=== PATIENT | female | born 1945 | race Caucasian/White ===

== ENCOUNTER 2020-03-25 15:48 | Inpatient (IN) | payer MEDICARE, MEDICAID ==
[~2020-03-25] VITALS: Ht 157.5 cm; Wt 81.5 kg
[2020-03-25 17:30] VITALS: BP 132/68
[2020-03-25] MEDS ORDERED: METO1TAB7 PO (18:11)
[2020-03-25] MEDS ORDERED: LOSA50TA88 PO (18:11)
[2020-03-25] MEDS ORDERED: MONT10TA4 PO (18:11)
[2020-03-25] MEDS ORDERED: IPRA0.00 INH (18:11)
[2020-03-25] MEDS ORDERED: SIMV20TA22 PO (18:11)
[2020-03-25] MEDS ORDERED: ZETI10TA16 PO (18:11)
[2020-03-25] MEDS ORDERED: INSUDET SC (18:11)
[2020-03-25] MEDS ORDERED: ASPI81TA85 PO (18:11)
[2020-03-25] MEDS ORDERED: SERT-138 PO (18:11)
[2020-03-25] MEDS ORDERED: INSUHUMDS SC (18:11)
[2020-03-25] MEDS ORDERED: CYAN100050 PO (18:11)
[2020-03-25] MEDS ORDERED: IPRAINH INH (18:11)
[2020-03-25] MEDS ORDERED: ONDANSETRON 4MG/2ML VIAL IV PRN (19:45)
[2020-03-25] MEDS: D5W 1,000 ML IV SCH (20:01)
[2020-03-25] MEDS ORDERED: IPRATROPIUM 0.5MG/ALBUTEROL 2.5MG INH SOL UD 3ML (DUONEB) NEB PRN (20:15)
--- NOTE | 2020-03-25 20:15 | HPEPDOC ---
General Date of Admission Mar 25, 2020 at 18:47 Date of Service: Mar 25, 2020 Chief Complaint The patient is a 74-year-old female admitted with a reason for visit of Vomiting, Esophageal Strictures. Source: Patient History of Present Illness 74 year old female with Esophageal stricture and multiple other medical problems went to [place] ED today for intractable vomiting which started last night > she was eating sandwich on which she choked and started vomiting. She has been vomiting for 3 to 4 weeks. She vomits 4 to 5 times a day. She was advised only to drink liquids but she has been eating solid food. She also complained of weakness and light headedness when she stands up as she has not been able to eat for months. She denied any diarrhea. She also complains of abdominal pain in the epigastrium, right upper quadrant and right flank, dull aching in nature about 3/10 without any radiation. In the ambulance on her way from [place] to [facility] she was hypoglycemic to 27. EMS gave 1 amp of 25% dex. She follows with Dr Reed and last EGD with dilatation was in January 2020. She was supposed to have another EGD in 1 month with dilatation but was delayed due to COVID. She has been scheduled for EGD tomorrow She is admitted for Esophageal stricture, inability to take oral food and recurrent choking and vomiting. Home Medications Scheduled Aspirin (Aspir 81) 81 Mg Tablet.dr, 81 MG PO DAILY, (Reported) Cyanocobalamin (Vitamin B-12) (Vitamin B-12) 1,000 Mcg Tablet, 1,000 MCG PO DAILY, (Reported) Ezetimibe (Zetia) 10 Mg Tablet, 10 MG PO QHS, (Reported) Insulin Detemir (Levemir) 100 Unit/1 Ml Vial, 30 UNITS SC DAILY, (Reported) Insulin Human Lispro (Humalog) 100 Unit/1 Ml Vial, 1 DOSE SC AC, (Reported) PER SLIDING SCALE Losartan Potassium (Losartan Potassium) 50 Mg Tablet, 50 MG PO DAILY, (Reported) Metoprolol Succinate (Metoprolol Succinate) 50 Mg Tab.er.24h, 50 MG PO DAILY, (Reported) Montelukast Sodium (Montelukast Sodium) 10 Mg Tablet, 10 MG PO DAILY, (Reported) Sertraline HCl (Sertraline HCl) 100 Mg Tablet, 100 MG PO QHS, (Reported) Simvastatin (Simvastatin) 20 Mg Tablet, 20 MG PO QHS, (Reported) Scheduled PRN Ipratropium [place] (Atrovent Hfa) 12.9 Gm Hfa.aer.ad, 2 PUFF INH QID PRN for SOB/WHEEZING, (Reported) Ipratropium/Albuterol Sulfate (Iprat-Albut 0.5-3(2.5) mg/3 ml) 3 Ml Ampul.neb, 1 VIAL INH QID PRN for SOB/WHEEZING, (Reported) Allergies Coded Allergies: ibuprofen (Verified Adverse Reaction, Unknown, ANGRY, 03/25/20) oxycodone (Verified Adverse Reaction, Unknown, ANGRY, 03/25/20) Past Medical History Medical History Esophageal stricture with ulceration s/p biopsy did not show any malignancy Last EGD in january 2020 Benign esophageal stenosis s/p dilatation in 2017 Erythematous Duodenopathy Chronic abdominal pain COPD Chronic hypoxic respiratory failure Moderate Pulmonary hypertension TARAS Mild Mitral regurgitation HTN H/o Bilateral nephrolithiasis with h/o ureteral stones and lithotripsy of left renal stone in 2015 Diastolic CHF DM2 OA / Fibromyalgia DLP Chronic urinary incontinence GERD Hiatal hernia history of chronic back pain history of depression. Ventral hernia repair. Vit B12 def Surgical History Dilatation of esophageal stricture Hysterectomy Ventral hernia repair. H/o cystoscopy ureteral stents Lithotripsy Appendectomy Bladder suspension Family History Significant Family History: No pertinent family hx discussed with patient Social History * Smoker: former Smoker Alcohol: Denies Drugs: denies A-FIB/CHADSVASC A-FIB History Current/History of A-Fib/PAF?: No Review of Systems Constitutional: Denies: Chills, Fever, Night Sweats Eyes: Denies: Pain, Vision change ENT: Denies: Head Aches, Ear Pain, Dysphagia Skin: Reports: Rash (in eh abdominal folds and groin), Itching Pulmonary: Denies: Dyspnea, Cough Cardiovascular: Denies: Chest Pain, Palpitations, Orthopnea, Paroxysmal Noc. Dyspnea, Lt Headedness Gastrointestinal: Reports: Vomiting, Abdominal Pain Genitourinary: Reports: Incontinence Hematologic: Denies: Bruising, Bleeding Excessively Musculoskeletal: Reports: Back Pain Physical Examination General Exam: Positive: Alert, Cooperative, No Acute Distress Eye Exam: Positive: PERRLA, Conjunctiva & lids normal, EOMI; Negative: Sclera icteric ENT Exam: Positive: Atraumatic, Mucous membr. moist/pink, Pharynx Normal Neck Exam: Positive: Supple; Negative: JVD, thyromegaly Chest Exam: Positive: Clear to auscultation, Normal air movement Heart Exam: Positive: Rate Normal, Regular Rhythm, Normal S1, Normal S2; Negative: Murmurs, Rubs Abdomen Exam: Positive: Normal bowel sounds, Soft, Tenderness (int eh right upper quadrant and right lumber area); Negative: Hepatospenomegaly Extremity Exam: Negative: Clubbing, Cyanosis, Edema Skin Exam: Positive: Nl turgor and temperature, Rash (erythematous rash int eh abdominal folds.) Neuro Exam: Positive: Normal Speech, Strength at 5/5 X4 ext, Normal Tone Vital Signs Vital Signs Date Time Temp Pulse Resp B/P (MAP) Pulse Ox O2 Delivery O2 Flow Rate FiO2 03/25/20 17:30 97.3 62 18 132/68 (89) 94 Room Air Assessment/Plan 74 year old female with Esophageal stricture and multiple other medical problems went to [place] ED today for intractable vomiting which started last night > she was eating sandwich on which she choked and started vomiting. She has been vomiting for 3 to 4 weeks. She vomits 4 to 5 times a day. She was advised only to drink liquids but she has been eating solid food. She also complained of weakness and light headedness when she stands up as she has not been able to eat for months. She denied any diarrhea. She also complains of abdominal pain in the epigastrium, right upper quadrant and right flank, dull aching in nature about 3/10 without any radiation. In the ambulance on her way from [place] to [facility] she was hypoglycemic to 27. EMS gave 1 amp of 25% dex. She follows with Dr Reed and last EGD with dilatation was in January 2020. She was supposed to have another EGD in 1 month with dilatation but was delayed due to COVID. she has been scheduled for EGD tomorrow She is admitted for Esophageal stricture, inability to take oral food and recurrent choking and vomiting. Esophageal stricture EGD tomorrow , Dr Reed Clear liquids, npo midnight, dex IV Hold ASA type and screen Hypoglycemia due to poor oral intake will hold all insulin DEx. Hypertension continue losartan and metoprolol Hyperlipidemia hold statin and zetia for now till after procedure. COPD continue duonebs prn, Hold singulair Depression continue sertraline TARAS uses oxygen at night will continue TARAS protocol Plan / VTE VTE Prophylaxis Ordered?: Yes JAYLA WHITMAN MD Mar 25, 2020 20:15
[2020-03-25 20:22] LABS: BASO % 0.5 % (0.0-1.0); EOS # 0.2 10^3/uL (0.0-0.5); EOS % 2.1 % (0.0-3.0); HEMATOCRIT 38.3 % (36.0-47.0); HEMOGLOBIN 12.1 g/dl (12.0-15.5); LYMPH # 2.3 10^3/uL (1.5-5.0); LYMPH % 26.2 % (24.0-44.0); MEAN CORPUSCULAR HEMOGLOBIN 27.1 pg (27.0-33.0); MEAN CORPUSCULAR HGB CONC 31.6 g/dl (32.0-36.5); MEAN CORPUSCULAR VOLUME 85.9 fl (80.0-96.0); MONO # 0.9 10^3/uL (0.0-0.8); MONO % 10.2 % (0.0-5.0); NEUTROPHILS # 5.3 10^3/uL (1.5-8.5); NEUTROPHILS % 60.8 % (36.0-66.0); PLATELET COUNT, AUTOMATED 236 10^3/uL (150-450); RED BLOOD COUNT 4.46 10^6/uL (4.00-5.40); WHITE BLOOD COUNT 8.6 10^3/uL (4.0-10.0)
[2020-03-25] MEDS ORDERED: SERTRALINE 100 MG TAB PO SCH (21:00)
[2020-03-25 21:02] LABS: BLOOD UREA NITROGEN 9 MG/DL (7-18); CALCIUM LEVEL 8.2 MG/DL (8.8-10.2); CARBON DIOXIDE LEVEL 33 MEQ/L (21-32); CHLORIDE LEVEL 106 MEQ/L (98-107); CREATININE FOR GFR 0.62 MG/DL (0.55-1.30); GLOMERULAR FILTRATION RATE > 60.0 (>39); GLUCOSE, FASTING 41 MG/DL (70-100); MAGNESIUM LEVEL 2.1 MG/DL (1.8-2.4); POTASSIUM SERUM 2.8 MEQ/L (3.5-5.1); SODIUM LEVEL 145 MEQ/L (136-145)
[2020-03-25] MEDS ORDERED: DEXTROSE 50% 50 ML SYRINGE IV STA (21:13)
[2020-03-25] MEDS: KCL 10MEQ/100ML SWI (KRUN) 10 MEQ in IV 1 EA IV SCH ×2 (21:28→23:07)
[2020-03-25] MEDS ORDERED: GLUCOSE 4GM CHEW TABLET PO PRN (21:30)
[2020-03-25] MEDS ORDERED: GLUCAGON INJ 1MG VIAL SC PRN (21:30)
[2020-03-25] MEDS ORDERED: DEXTROSE 50% 50 ML SYRINGE IV PRN (21:30)
[2020-03-25] MEDS: NYSTATIN 100,000 UNITS/GM TOPICAL PWD 15 GM TOP SCH (21:38)
[2020-03-25 22:00] VITALS: BP 160/56
[2020-03-26] VITALS (12 sets, daily range): BP systolic 152–197; BP diastolic 67–96
[2020-03-26 05:44] LABS: BASO % 0.5 % (0.0-1.0); EOS # 0.2 10^3/uL (0.0-0.5); EOS % 3.6 % (0.0-3.0); HEMATOCRIT 38.1 % (36.0-47.0); LYMPH % 32.3 % (24.0-44.0); MEAN CORPUSCULAR HGB CONC 31.5 g/dl (32.0-36.5); MEAN CORPUSCULAR VOLUME 85.6 fl (80.0-96.0); MONO # 0.6 10^3/uL (0.0-0.8); MONO % 9.8 % (0.0-5.0); NEUTROPHILS # 3.2 10^3/uL (1.5-8.5); NEUTROPHILS % 53.5 % (36.0-66.0); PLATELET COUNT, AUTOMATED 218 10^3/uL (150-450); RED BLOOD COUNT 4.45 10^6/uL (4.00-5.40)
[2020-03-26 06:09] LABS: BLOOD UREA NITROGEN 8 MG/DL (7-18); CALCIUM LEVEL 8.3 MG/DL (8.8-10.2); CARBON DIOXIDE LEVEL 34 MEQ/L (21-32); CHLORIDE LEVEL 103 MEQ/L (98-107); CREATININE FOR GFR 0.65 MG/DL (0.55-1.30); GLOMERULAR FILTRATION RATE > 60.0 (>39); GLUCOSE, FASTING 90 MG/DL (70-100); POTASSIUM SERUM 2.9 MEQ/L (3.5-5.1); SODIUM LEVEL 143 MEQ/L (136-145)
[2020-03-26] MEDS ORDERED: POTASSIUM CHLORIDE 10% LIQ 20 MEQ/15 ML UDC PO ONE (06:30)
[2020-03-26] MEDS ORDERED: KCL 10MEQ/100ML SWI (KRUN) 10 MEQ in IV 1 EA IV SCH (07:45)
[2020-03-26] MEDS ORDERED: LIDOCAINE 2% 100MG/5ML SDV (FOR ANES.) As Ordered ONE (08:01)
[2020-03-26] MEDS ORDERED: propofoL 200 MG/20 ML VIAL As Ordered ONE (08:01)
[2020-03-26] MEDS: D5W 1,000 ML IV SCH ×2 (08:28→16:49)
[2020-03-26] MEDS: NYSTATIN 100,000 UNITS/GM TOPICAL PWD 15 GM TOP SCH ×2 (08:28→21:25)
[2020-03-26] MEDS ORDERED: METOPROLOL SUCC (TopROL XL) 50MG **XL** TAB PO SCH (09:00)
[2020-03-26] MEDS ORDERED: LOSARTAN 50MG TABLET PO SCH (09:00)
[2020-03-26] MEDS ORDERED: MONTELUKAST 10 MG TAB PO SCH (09:00)
[2020-03-26] MEDS ORDERED: KETOROLAC 30 MG/ML 1ML VIAL IV ONE (10:45)
[2020-03-26] MEDS: POTASSIUM CHLORIDE 10% LIQ 20 MEQ/15 ML UDC PO ONE ×2 (12:08→12:11)
[2020-03-26] MEDS ORDERED: POTASSIUM CHLORIDE 10 MEQ SR TABLET PO ONE (13:00)
[2020-03-26] MEDS ORDERED: fentaNYL 100 MCG/2 ML INJECTION (J3010) As Ordered ONE (14:07)
--- NOTE | 2020-03-26 15:22 | GIPN ---
[facility] GI Progress Note GI Progress Note DATE: Mar 26, 2020 Primary physician/ hospitalist: Dr. Wheeler Reason for consult: Nausea, vomiting and dyphagia from esophageal stricture.Abdominal pain and suspected duodenal ulcer in CT scan Brief sumarry of hospital course: 74-year-old female patient with HTN, DM type II, COPD, moderate pulmonary hypert ension, mild mitral regurgitation, diastolic CHF, prior esophageal stricture dilated in [address] Dennison, was initially seen by me in [facility] hospitalization for persistent nausea, vomiting and dysphagia, she had EGD (report below) showed severe esophagitis ( suspect pill esophagitis on biopsy) with mid esophageal stricture, no malignancy on biopsies ( regular scope could not pass), was scheduled for outpatient EGD for esophageal dilation, but went to [facility] ER for recurrent symptoms of nausea, vomiting and unable to tolerate solid foods by mouth. As per the discussion with ER team, patient was transferred to [facility] for EGD and dilation. Patient reports she is not able to swallow solid foods and her vomiting stopped since in ER. She vomits 4 to 5 times a day. She was advised soft to liquid diet in GI clinic but she has been eating solid food. She also complained of weakness and light headedness and as per the EMR she has documented episode of hypoglycemia treated with Dextrose. Review of Systems: GI: as stated above CVS: No chest pain, No palpitations, No leg swelling. RS: No Shortness of breath, No Wheezing, no cough [place]: Has dizziness and generalized weakness, No motor weakness, No sensory problems Hematology: No bruising, No gum bleeding, Musculoskeletal: No joint pain, ambulating well. Skin: No rash : No hematuria, No burning sensation of the urine ENT: No ear discharge/ pain, No dysphagia. Eyes: No photophobia. Jaundice Home medications: reviewed. Antithrombotic agents: -Aspirin 81 MG Medical h/o: As above. Surgical h/o: None on abdomen. Social h/o: Alcohol: Denies, smoking: Former smoker, IVDA/ drugs: Denies. Family h/o of GI cancers - None Prior Endoscopies: --- EGD: -Done for dysphagia in [address] Dennison -- noted to have benign intrinsic distal esophageal stricture which was dilated. Biopsies were negative for any dysplasia or Rene's, --- Colonoscopy: -None in [facility] Prior GI evaluations: -Patient used to follow with Dr. Dennison. Exam: Vitals: reviewed General: Alert and oriented x 3, not in distress HEENT: NO pallor, no icterus. Normal oropharynx, NO cervical lymph nodes. Chest: symmetric with bilateral clear air entry, CVS: S1, S2 heard, normal, no murmurs . Abdomen: non-distended, no surgical scars, soft, non-tender, no palpable masses, normal bowel sounds heard. Rectal exam: Patient refused / Deferred at this time in view of scheduled colonoscopy. Extremities: no pedal edema, pulses palpable. [place]: no focal motor or sensory deficits. Moves all extremities Skin: no rash. Labs: reviewed. Stable hemoglobin and hematocrit from baseline Impression: -- Nausea and vomiting with prior know esophageal stricture ( last EGD in January 2020 ), dysphagia to solid foods -- symptoms likely from esophageal stricture ( possible etiology - history of acid reflux vs Pill induced esophagitis). prior biopsies negative for esophageal cancer. Recommendations: -- Educated about the prior test results and all possible differential diagnoses. All questions answered. -- NPO for now. Switch all oral medications to parenteral if possible. -- Avoid NSAIDs. -- Continue patoprazole 40 mg IV - twice daily for now. -- Educated about the Anti reflux measures; Advised to avoid being overweight/obese; avoid acid reflux inducing food: excessive caffeine, chocolate, alcohol, peppermint and fatty foods; , Avoid large and late meal: e ating three or more hours before bedtime. -- Will schedule for inpatient EGD with dilation. The procedure, indications, risks (bleeding, perforation, infection, hypotension, respiratory depression, a llergy, need for endotracheal intubation, surgery, or even ), benefits, limitations (e.g., missing a lesion), and all other alternatives (including no intervention) were explained to the patient who understood and agreed for the procedure. -- Please follow operative note for detailed post procedure recommendations. -- Return to GI clinic 2-3 weeks -- Plan of care discussed with patient and primary team. Patient verbalized understanding and agreed with the plan. Post procedure follow up note: - Patient tolerated the procedure well. No immediate post procedure complications. - NPO for 1 day, then advance as tolerated to clear liquid diet for 5 days. - Continue present medications. - Use a proton pump inhibitor IV BID for 1 day. - Use broad spectrum antibiotics for 5 days. - Use sucralfate suspension 1 gram PO QID for 6 weeks starting from tomorrow. - Recommend an anti-emetic/anti-nausea medication for 2 days. - Monitor closely for bleeding and esophageal perforation. ( As per discussion with primary team patient was transferred to ICU for close monitoring for atleast 24- 48 hours.) - Monitor Hemoglobin and hematocrit. - Await pathology results. - Repeat upper endoscopy in 4 weeks to check healing and for retreatment. - Telephone GI clinic for pathology results in 2 weeks. - Return to GI clinic in 3 weeks. Post procedure recommendations communicated to Primary team and patient. Patient verbalized understanding of the plan of care. Allergies Coded Allergies: ibuprofen (Verified Adverse Reaction, Unknown, ANGRY, 03/25/20) oxycodone (Verified Adverse Reaction, Unknown, ANGRY, 03/25/20) Current Medications Current Medications Medications (Trade) Dose Ordered Sig/Vera Route PRN Reason Start Time Stop Time Status Last Admin Dose Admin Albuterol/ Ipratropium (Duoneb (Ipr 0.5mg/Alb 2.5mg)) 3 ml Q6HP PRN NEB SOB/WHEEZING 03/25/20 20:15 Dextrose (Dextrose 50%) 25 ml ASDIRECTED PRN IV SEE LABEL COMMENTS 03/25/20 21:30 Dextrose (Dextrose 50%) 50 ml STAT STAT IV 03/25/20 21:13 03/25/20 21:20 DC 03/25/20 21:27 Dextrose/Water 1,000 ml @ 100 mls/hr Q10H IV 03/25/20 19:45 03/26/20 08:28 Glucagon (Glucagon) 1 mg ASDIRECTED PRN SC SEE LABEL COMMENTS 03/25/20 21:30 Glucose (Glucose) 16 GM ASDIRECTED PRN PO SEE LABEL COMMENTS 03/25/20 21:30 Home Med (Med Rec Complete!) ASDIRECTED XX 03/25/20 18:15 03/25/20 18:51 DC Losartan Potassium (Cozaar) 50 mg DAILY PO 03/26/20 09:00 03/26/20 08:29 Metoprolol Succinate (TopROL XL) 50 mg DAILY PO 03/26/20 09:00 03/26/20 08:29 Montelukast Sodium (Singulair) 10 mg DAILY PO 03/26/20 09:00 03/26/20 08:29 Nystatin (Mycostatin Powder, Nystop) APPLY TO AFFECTED AREA BID TOP 03/25/20 21:00 03/26/20 08:28 Ondansetron HCl (ZOFRAN INJection) 4 mg Q6HP PRN IV NAUSEA OR VOMITING 03/25/20 19:45 Potassium Chloride 10 meq/ IV Miscellaneous Supplies 100 ml @ 100 mls/hr 0645,0745 IV 03/26/20 07:45 03/26/20 12:00 DC 03/26/20 06:52 Potassium Chloride 10 meq/ IV Miscellaneous Supplies 100 ml @ 100 mls/hr 2130,2230 IV 03/25/20 21:30 03/25/20 23:29 DC 03/25/20 23:07 Sertraline HCl (Zoloft) 100 mg QHS PO 03/25/20 21:00 03/25/20 21:28 VS,Fishbone, I+O VS, Fishbone, I+O Laboratory Tests 03/25/20 20:11 03/26/20 05:23 03/26/20 09:59 Vital Signs Date Time Temp Pulse Resp B/P (MAP) Pulse Ox O2 Delivery O2 Flow Rate FiO2 03/26/20 08:29 68 161/76 03/26/20 06:00 96.7 18 94 Room Air I&O- Last 24 Hours up to 6 AM 03/26/20 06:00 Intake Total 1540 ml Output Total 0 ml Balance 1540 ml LYNN RIVERA MD Mar 26, 2020 15:22
[2020-03-26] MEDS: PANTOPRAZOLE 40MG VIAL (C9113 PER 1) IV SCH (16:50)
[2020-03-26] MEDS: PIPERACILLIN/TAZOBACTAM SOD 3.375 GM in D5W MINI-BAG PLUS 50 ML IV SCH ×2 (16:50→22:39)
--- NOTE | 2020-03-26 17:00 | IPNPDOC ---
Date Seen The patient was seen on 03/26/20. Progress Note SUBJECTIVE: S/p EGD today where dilation of the stricture was done to 12 mm. There was mild mucosal disruption and the patient was made NPO and will be watched over the next 24 hours in ICU. Broad spectrum antibiotics are started, only IV meds to be given. GI following closely. The patient denies chest pain, shortness of breath, nausea, vomiting. OBJECTIVE: VITAL SIGNS: Please see below PHYSICAL EXAMINATION: CONSTITUTIONAL: No acute distress, resting comfortably, AAO x 3 EYES: PERRLA, EOM intact HENT, MOUTH: Normocephalic, atraumatic, moist mucous membranes NECK: SUPPLE, no JVD, no lymphadenopathy, no carotid bruit CV: Regular rate and rhythm, S1S2 normal, no murmurs/rubs/gallops RESPIRATORY: Clear to auscultation bilaterally, no rales/rhonchi/wheezes GI: obese abdomen, BS positive in 4 quadrants, soft, nontender, nondistended, no rebound or guarding, no organomegaly : Deferred MUSCULOSKELETAL: Normal ROM. No cyanosis, clubbing, swelling, joint deformity, extremity edema INTEGUMENTARY: Intact, no rashes, no lesions, no erythema NEUROLOGIC: Cranial Nerves II-XII are intact, no focal deficits CURRENT MEDICATIONS: Please see below LABORATORY DATA: Please see below IMAGING: EGD report pending. No other new imaging. ASSESSMENT: 74 y/o F admitted for dysphagia s/p esophageal stricture dilation. PLAN: 1. 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 EGD today, s/p dilation with biopsies pending. Nothing by mouth for the next 24 hours, IV PPI, IV Zofran, IV fluids, prophylactic Zosyn. GI following. Monitoring in ICU due to increased mucosal disruption during procedure without blood loss. Type and screen. 2. Hypokalemia. Will give additional 40 mEq this afternoon for potassium 3.4. F/u in AM. 3. Hypoglycemia likely 2/2 to poor oral intake. Holding all insulins. C/w D5W at 100 cc/hr. 4. HTN. Stable. Resume losartan and metoprolol when taking PO. 5. HLD. Resume statin and zetia when taking PO. 6. COPD. Stable. C/w duonebs prn, hold singulair. 7. Depression. Stable. Resume sertraline when taking PO. 8. TARAS uses oxygen at night. 9. GI px. PPI IV. 10. DVT px. TEds, SCDs. DISPOSITION: Admitted under inpatient status. Plan is discharge home when medically improved. VS, I&O, 24H, Fishbone Vital Signs/I&O Vital Signs Date Time Temp Pulse Resp B/P (MAP) Pulse Ox O2 Delivery O2 Flow Rate FiO2 03/26/20 08:29 68 161/76 03/26/20 06:00 96.7 18 94 Room Air I&O- Last 24 Hours up to 6 AM 03/26/20 06:00 Intake Total 1540 ml Output Total 0 ml Balance 1540 ml Laboratory Data 24H LABS Laboratory Tests 2 03/25/20 20:11: Immature Granulocyte % (Auto) 0.2, Neutrophils (%) (Auto) 60.8, Lymphocytes (%) (Auto) 26.2, Monocytes (%) (Auto) 10.2H, Eosinophils (%) (Auto) 2.1, Basophils (%) (Auto) 0.5, Neutrophils # (Auto) 5.3, Lymphocytes # (Auto) 2.3, Monocytes # (Auto) 0.9H, Eosinophils # (Auto) 0.2, Basophils # (Auto) 0.0, Nucleated Red Blood Cells % (auto) 0.0, Anion Gap 6L, Glomerular Filtration Rate > 60.0, Calcium Level 8.2L, Magnesium Level 2.1 03/25/20 21:13: Bedside Glucose (Misc Panel) 35*L 03/25/20 21:32: Bedside Glucose Confirm (Misc) 173 03/25/20 21:48: Bedside Glucose (Misc Panel) 162H 03/26/20 00:26: Bedside Glucose (Misc Panel) 91 03/26/20 05:23: Immature Granulocyte % (Auto) 0.3, Neutrophils (%) (Auto) 53.5, Lymphocytes (%) (Auto) 32.3, Monocytes (%) (Auto) 9.8H, Eosinophils (%) (Auto) 3.6H, Basophils (%) (Auto) 0.5, Neutrophils # (Auto) 3.2, Lymphocytes # (Auto) 2.0, Monocytes # (Auto) 0.6, Eosinophils # (Auto) 0.2, Basophils # (Auto) 0.0, Nucleated Red Blood Cells % (auto) 0.0, Anion Gap 6L, Glomerular Filtration Rate > 60.0, Calcium Level 8.3L 03/26/20 05:49: Bedside Glucose (Misc Panel) 90 03/26/20 11:58: Bedside Glucose (Misc Panel) 141H CBC/BMP Laboratory Tests 03/25/20 20:11 03/26/20 05:23 03/26/20 09:59 Current Medications Current Medications Medications (Trade) Dose Ordered Sig/Vera Route PRN Reason Start Time Stop Time Status Last Admin Dose Admin Albuterol/ Ipratropium (Duoneb (Ipr 0.5mg/Alb 2.5mg)) 3 ml Q6HP PRN NEB SOB/WHEEZING 03/25/20 20:15 Dextrose (Dextrose 50%) 25 ml ASDIRECTED PRN IV SEE LABEL COMMENTS 03/25/20 21:30 Dextrose (Dextrose 50%) 50 ml STAT STAT IV 03/25/20 21:13 03/25/20 21:20 DC 03/25/20 21:27 Dextrose/Water 1,000 ml @ 100 mls/hr Q10H IV 03/25/20 19:45 03/26/20 08:28 Glucagon (Glucagon) 1 mg ASDIRECTED PRN SC SEE LABEL COMMENTS 03/25/20 21:30 Glucose (Glucose) 16 GM ASDIRECTED PRN PO SEE LABEL COMMENTS 03/25/20 21:30 Home Med (Med Rec Complete!) ASDIRECTED XX 03/25/20 18:15 03/25/20 18:51 DC Losartan Potassium (Cozaar) 50 mg DAILY PO 03/26/20 09:00 03/26/20 15:24 DC 03/26/20 08:29 Metoprolol Succinate (TopROL XL) 50 mg DAILY PO 03/26/20 09:00 03/26/20 15:24 DC 03/26/20 08:29 Montelukast Sodium (Singulair) 10 mg DAILY PO 03/26/20 09:00 03/26/20 15:24 DC 03/26/20 08:29 Nystatin (Mycostatin Powder, Nystop) APPLY TO AFFECTED AREA BID TOP 03/25/20 21:00 03/26/20 08:28 Ondansetron HCl (ZOFRAN INJection) 4 mg Q6HP PRN IV NAUSEA OR VOMITING 03/25/20 19:45 Pantoprazole Sodium (Protonix) 40 mg DAILY IV 03/26/20 09:00 Piperacillin Sod/ Tazobactam Sod 3.375 gm/Dextrose 50 ml @ 50 mls/hr Q6H IV 03/26/20 16:00 Potassium Chloride 10 meq/ IV Miscellaneous Supplies 100 ml @ 100 mls/hr 0645,0745 IV 03/26/20 07:45 03/26/20 12:00 DC 03/26/20 06:52 Potassium Chloride 10 meq/ IV Miscellaneous Supplies 100 ml @ 100 mls/hr 2130,2230 IV 03/25/20 21:30 03/25/20 23:29 DC 03/25/20 23:07 Sertraline HCl (Zoloft) 100 mg QHS PO 03/25/20 21:00 03/26/20 15:24 DC 03/25/20 21:28 Allergies Coded Allergies: ibuprofen (Verified Adverse Reaction, Unknown, ANGRY, 03/25/20) oxycodone (Verified Adverse Reaction, Unknown, ANGRY, 03/25/20) Myrna Kay MD Mar 26, 2020 17:00
[2020-03-26] MEDS ORDERED: hydrALAZINE 20MG/ML 1ML VIAL (J0360 PER 20MG) IV ONE (17:30)
[2020-03-26] MEDS: KCL 10MEQ/100ML SWI (KRUN) 10 MEQ in IV 1 EA IV SCH ×4 (17:54→21:25)
[2020-03-26 18:09] LABS: MEAN CORPUSCULAR HEMOGLOBIN 28.2 pg (27.0-33.0); MEAN CORPUSCULAR HGB CONC 32.5 g/dl (32.0-36.5); MEAN CORPUSCULAR VOLUME 86.8 fl (80.0-96.0); PLATELET COUNT, AUTOMATED 234 10^3/uL (150-450); RED BLOOD COUNT 4.61 10^6/uL (4.00-5.40); WHITE BLOOD COUNT 6.5 10^3/uL (4.0-10.0)
[2020-03-26 18:38] LABS: BLOOD UREA NITROGEN 7 MG/DL (7-18); CREATININE FOR GFR 0.76 MG/DL (0.55-1.30); GLOMERULAR FILTRATION RATE > 60.0 (>39)
[2020-03-27] VITALS (13 sets, daily range): BP systolic 115–168; BP diastolic 55–77
[2020-03-27] MEDS: PIPERACILLIN/TAZOBACTAM SOD 3.375 GM in D5W MINI-BAG PLUS 50 ML IV SCH ×4 (04:05→21:15)
[2020-03-27] MEDS: D5W 1,000 ML IV SCH (04:06)
[2020-03-27 06:09] LABS: BASO # 0.1 10^3/uL (0.0-0.2); BASO % 0.4 % (0.0-1.0); EOS # 0.2 10^3/uL (0.0-0.5); EOS % 1.4 % (0.0-3.0); HEMATOCRIT 37.8 % (36.0-47.0); HEMOGLOBIN 12.4 g/dl (12.0-15.5); LYMPH # 1.9 10^3/uL (1.5-5.0); LYMPH % 16.2 % (24.0-44.0); MEAN CORPUSCULAR HEMOGLOBIN 28.2 pg (27.0-33.0); MEAN CORPUSCULAR HGB CONC 32.8 g/dl (32.0-36.5); MEAN CORPUSCULAR VOLUME 86.1 fl (80.0-96.0); MONO # 0.9 10^3/uL (0.0-0.8); MONO % 8.1 % (0.0-5.0); NEUTROPHILS # 8.6 10^3/uL (1.5-8.5); NEUTROPHILS % 73.6 % (36.0-66.0); PLATELET COUNT, AUTOMATED 221 10^3/uL (150-450); RED BLOOD COUNT 4.39 10^6/uL (4.00-5.40); WHITE BLOOD COUNT 11.7 10^3/uL (4.0-10.0)
[2020-03-27 06:31] LABS: BLOOD UREA NITROGEN 7 MG/DL (7-18); CALCIUM LEVEL 8.1 MG/DL (8.8-10.2); CARBON DIOXIDE LEVEL 31 MEQ/L (21-32); CHLORIDE LEVEL 99 MEQ/L (98-107); GLOMERULAR FILTRATION RATE > 60.0 (>39); GLUCOSE, FASTING 163 MG/DL (70-100); POTASSIUM SERUM 3.5 MEQ/L (3.5-5.1); SODIUM LEVEL 139 MEQ/L (136-145)
[2020-03-27] MEDS ORDERED: D5W/0.45% SODIUM CHLORIDE 1,000 ML IV SCH (07:30)
[2020-03-27] MEDS: PANTOPRAZOLE 40MG VIAL (C9113 PER 1) IV SCH (08:10)
[2020-03-27] MEDS: NYSTATIN 100,000 UNITS/GM TOPICAL PWD 15 GM TOP SCH ×2 (08:10→21:15)
--- NOTE | 2020-03-27 15:22 | IPNPDOC ---
Date Seen The patient was seen on 03/27/20. Progress Note SUBJECTIVE: No bleeding overnight. BS slightly elevated, changed IVFs. +1560 mL/24 hrs. If doing well without bleeding by this evening, can transition to CLD and downgrade to med/surg. GI following closely. The patient denies chest pain, shortness of breath, nausea, vomiting. OBJECTIVE: VITAL SIGNS: Please see below PHYSICAL EXAMINATION: CONSTITUTIONAL: No acute distress, resting comfortably, AAO x 3 EYES: PERRLA, EOM intact HENT, MOUTH: Normocephalic, atraumatic, moist mucous membranes NECK: SUPPLE, no JVD, no lymphadenopathy, no carotid bruit CV: Regular rate and rhythm, S1S2 normal, no murmurs/rubs/gallops RESPIRATORY: Clear to auscultation bilaterally, no rales/rhonchi/wheezes GI: obese abdomen, BS positive in 4 quadrants, soft, nontender, nondistended, no rebound or guarding, no organomegaly : Deferred MUSCULOSKELETAL: Normal ROM. No cyanosis, clubbing, swelling, joint deformity, extremity edema INTEGUMENTARY: Intact, no rashes, no lesions, no erythema NEUROLOGIC: Cranial Nerves II-XII are intact, no focal deficits CURRENT MEDICATIONS: Please see below LABORATORY DATA: Please see below IMAGING: EGD report pending. No other new imaging. ASSESSMENT: 74 y/o F admitted for dysphagia s/p esophageal stricture dilation 03/26/20. PLAN: 1. Esophageal stricture, possibly 2/2 to eosinophilic esophagitis. No bleeding overnight. EGD 03/26/20, s/p dilation with biopsies pending. NPO until this evening then, if still no bleeding, advance to CLD and broad spectrum abx for 5 days, PO PPI, carafate. Currently c/w IV PPI, IV Zofran, IV fluids, Zosyn. Monitoring in ICU due to increased mucosal disruption during procedure without blood loss. Patient will need to return to GI clinic in 3 weeks after discharge, repeat EGD in 4 weeks. 2. Hypokalemia. Resolved. 3. Hypoglycemia likely 2/2 to poor oral intake. Still NPO, improving, switched to D5W 1/2 NSS at decreased 75 cc/hr. Monitor BS Q6hrs. 4. HTN. Stable. Resume losartan and metoprolol when taking PO. 5. HLD. Resume statin and zetia when taking PO. 6. COPD. Stable. C/w duonebs prn, hold singulair. 7. Depression. Stable. Resume sertraline when taking PO. 8. TARAS uses oxygen at night. 9. GI px. PPI IV. 10. DVT px. TEds, SCDs. DISPOSITION: Admitted under inpatient status. Plan is discharge home when medically improved. VS, I&O, 24H, Fishbone Vital Signs/I&O Vital Signs Date Time Temp Pulse Resp B/P (MAP) Pulse Ox O2 Delivery O2 Flow Rate FiO2 03/27/20 14:00 68 168/73 (104) 98 Nasal Cannula 0.5 03/27/20 12:00 97.2 16 I&O- Last 24 Hours up to 6 AM 03/27/20 05:59 Intake Total 460 ml Output Total 0 ml Balance 460 ml Laboratory Data 24H LABS Laboratory Tests 2 03/26/20 17:57: Bedside Glucose (Misc Panel) 198H 03/26/20 17:59: Nucleated Red Blood Cells % (auto) 0.0, Glomerular Filtration Rate > 60.0 03/27/20 00:14: Bedside Glucose (Misc Panel) 188H 03/27/20 05:32: Nucleated Red Blood Cells % (auto) 0.0, Glomerular Filtration Rate > 60.0, Immature Granulocyte % (Auto) 0.3, Neutrophils (%) (Auto) 73.6H, Lymphocytes (%) (Auto) 16.2L, Monocytes (%) (Auto) 8.1H, Eosinophils (%) (Auto) 1.4, Basophils (%) (Auto) 0.4, Neutrophils # (Auto) 8.6H, Lymphocytes # (Auto) 1.9, Monocytes # (Auto) 0.9H, Eosinophils # (Auto) 0.2, Basophils # (Auto) 0.1, Anion Gap 9, Calcium Level 8.1L 03/27/20 05:44: Bedside Glucose (Misc Panel) 162H 03/27/20 12:02: Bedside Glucose (Misc Panel) 153H CBC/BMP Laboratory Tests 03/26/20 17:59 03/27/20 05:32 Current Medications Current Medications Medications (Trade) Dose Ordered Sig/Vera Route PRN Reason Start Time Stop Time Status Last Admin Dose Admin Albuterol/ Ipratropium (Duoneb (Ipr 0.5mg/Alb 2.5mg)) 3 ml Q6HP PRN NEB SOB/WHEEZING 03/25/20 20:15 Dextrose (Dextrose 50%) 25 ml ASDIRECTED PRN IV SEE LABEL COMMENTS 03/25/20 21:30 Dextrose (Dextrose 50%) 50 ml STAT STAT IV 03/25/20 21:13 03/25/20 21:20 DC 03/25/20 21:27 Dextrose/Sodium Chloride 1,000 ml @ 75 mls/hr [id number] IV 03/27/20 07:30 03/27/20 08:10 Dextrose/Water 1,000 ml @ 100 mls/hr Q10H IV 03/25/20 19:45 03/27/20 07:27 DC 03/26/20 16:49 Glucagon (Glucagon) 1 mg ASDIRECTED PRN SC SEE LABEL COMMENTS 03/25/20 21:30 Glucose (Glucose) 16 GM ASDIRECTED PRN PO SEE LABEL COMMENTS 03/25/20 21:30 Home Med (Med Rec Complete!) ASDIRECTED XX 03/25/20 18:15 03/25/20 18:51 DC Losartan Potassium (Cozaar) 50 mg DAILY PO 03/26/20 09:00 03/26/20 15:24 DC 03/26/20 08:29 Metoprolol Succinate (TopROL XL) 50 mg DAILY PO 03/26/20 09:00 03/26/20 15:24 DC 03/26/20 08:29 Montelukast Sodium (Singulair) 10 mg DAILY PO 03/26/20 09:00 03/26/20 15:24 DC 03/26/20 08:29 Nystatin (Mycostatin Powder, Nystop) APPLY TO AFFECTED AREA BID TOP 03/25/20 21:00 03/27/20 08:10 Ondansetron HCl (ZOFRAN INJection) 4 mg Q6HP PRN IV NAUSEA OR VOMITING 03/25/20 19:45 Pantoprazole Sodium (Protonix) 40 mg DAILY IV 03/26/20 09:00 03/27/20 08:10 Piperacillin Sod/ Tazobactam Sod 3.375 gm/Dextrose 50 ml @ 50 mls/hr Q6H IV 03/26/20 16:00 03/27/20 10:44 Potassium Chloride 10 meq/ IV Miscellaneous Supplies 100 ml @ 100 mls/hr 0645,0745 IV 03/26/20 07:45 03/26/20 12:00 DC 03/26/20 06:52 Potassium Chloride 10 meq/ IV Miscellaneous Supplies 100 ml @ 100 mls/hr 2130,2230 IV 03/25/20 21:30 03/25/20 23:29 DC 03/25/20 23:07 Potassium Chloride 10 meq/ IV Miscellaneous Supplies 100 ml @ 100 mls/hr Q1H IV 03/26/20 17:00 03/26/20 20:59 DC 03/26/20 21:25 Sertraline HCl (Zoloft) 100 mg QHS PO 03/25/20 21:00 03/26/20 15:24 DC 03/25/20 21:28 Allergies Coded Allergies: ibuprofen (Verified Adverse Reaction, Unknown, ANGRY, 03/25/20) oxycodone (Verified Adverse Reaction, Unknown, ANGRY, 03/25/20) Myrna Kay MD Mar 27, 2020 15:22
[2020-03-27] MEDS: NS 0.45% 1,000 ML IV SCH (17:21)
[2020-03-27] MEDS: SUCRALFATE SUSP 1GM/10ML UD PO SCH (17:43)
[2020-03-27] MEDS: HumaLOG INSULIN (NovoLOG) PER UNIT SC SCH (17:45)
[2020-03-28] MEDS: SUCRALFATE SUSP 1GM/10ML UD PO SCH ×5 (00:12→23:19)
[2020-03-28] MEDS: PIPERACILLIN/TAZOBACTAM SOD 3.375 GM in D5W MINI-BAG PLUS 50 ML IV SCH ×4 (03:45→22:40)
[2020-03-28 04:18] LABS: BASO % 0.6 % (0.0-1.0); EOS # 0.3 10^3/uL (0.0-0.5); EOS % 3.7 % (0.0-3.0); HEMATOCRIT 36.7 % (36.0-47.0); HEMOGLOBIN 11.6 g/dl (12.0-15.5); LYMPH # 1.9 10^3/uL (1.5-5.0); LYMPH % 26.3 % (24.0-44.0); MEAN CORPUSCULAR HEMOGLOBIN 27.5 pg (27.0-33.0); MEAN CORPUSCULAR HGB CONC 31.6 g/dl (32.0-36.5); MONO # 0.6 10^3/uL (0.0-0.8); MONO % 8.9 % (0.0-5.0); NEUTROPHILS # 4.3 10^3/uL (1.5-8.5); NEUTROPHILS % 60.2 % (36.0-66.0); PLATELET COUNT, AUTOMATED 224 10^3/uL (150-450); RED BLOOD COUNT 4.22 10^6/uL (4.00-5.40); WHITE BLOOD COUNT 7.1 10^3/uL (4.0-10.0)
[2020-03-28 04:41] LABS: BLOOD UREA NITROGEN 7 MG/DL (7-18); CALCIUM LEVEL 7.9 MG/DL (8.8-10.2); CARBON DIOXIDE LEVEL 33 MEQ/L (21-32); CHLORIDE LEVEL 103 MEQ/L (98-107); CREATININE FOR GFR 0.74 MG/DL (0.55-1.30); GLOMERULAR FILTRATION RATE > 60.0 (>39); GLUCOSE, FASTING 100 MG/DL (70-100); POTASSIUM SERUM 3.3 MEQ/L (3.5-5.1); SODIUM LEVEL 141 MEQ/L (136-145)
[2020-03-28] MEDS: HumaLOG INSULIN (NovoLOG) PER UNIT SC SCH ×5 (05:59→23:54)
[2020-03-28] MEDS: NS 0.45% 1,000 ML IV SCH (06:01)
[2020-03-28 06:40] VITALS: BP 144/65
[2020-03-28 08:30] VITALS: BP 153/76
[2020-03-28] MEDS: NYSTATIN 100,000 UNITS/GM TOPICAL PWD 15 GM TOP SCH ×2 (08:51→22:39)
[2020-03-28] MEDS ORDERED: POTASSIUM CHLORIDE 10 MEQ SR TABLET PO ONE (09:00)
[2020-03-28] MEDS ORDERED: PANTOPRAZOLE 40MG TAB (PROTONIX) PO SCH (09:00)
[2020-03-28 14:00] VITALS: BP 150/73
--- NOTE | 2020-03-28 15:01 | IPNPDOC ---
Date Seen The patient was seen on 03/28/20. Progress Note SUBJECTIVE: No bleeding overnight, abdominal discomfort with some reported nausea and vomiting by patient. IVFs stopped. Tolerating clear liquid diet well. The patient denies chest pain, shortness of breath, nausea, vomiting. OBJECTIVE: VITAL SIGNS: Please see below PHYSICAL EXAMINATION: CONSTITUTIONAL: No acute distress, resting comfortably, AAO x 3 EYES: PERRLA, EOM intact HENT, MOUTH: Normocephalic, atraumatic, moist mucous membranes NECK: SUPPLE, no JVD, no lymphadenopathy, no carotid bruit CV: Regular rate and rhythm, S1S2 normal, no murmurs/rubs/gallops RESPIRATORY: Clear to auscultation bilaterally, no rales/rhonchi/wheezes GI: obese abdomen, BS positive in 4 quadrants, soft, nontender, nondistended, no rebound or guarding, no organomegaly : Deferred MUSCULOSKELETAL: Normal ROM. No cyanosis, clubbing, swelling, joint deformity, extremity edema INTEGUMENTARY: Intact, no rashes, no lesions, no erythema NEUROLOGIC: Cranial Nerves II-XII are intact, no focal deficits CURRENT MEDICATIONS: Please see below LABORATORY DATA: Please see below IMAGING: No new imaging. ASSESSMENT: 74 y/o F admitted for dysphagia s/p esophageal stricture dilation 03/26/20. PLAN: 1. Esophageal stricture, possibly 2/2 to eosinophilic esophagitis. EGD 03/26/20, s/p dilation with biopsies pending. Tolerating CLD well, Zosyn (Stop 03/31/20), PPI, carafate. GI to follow up after weekend. 2. Hypoglycemia likely 2/2 to poor oral intake. Resolved. 4. HTN. Slightly increased likely due to IVFs- stopped. C/w losartan and metoprolol. 5. HLD. C/w statin and zetia 6. COPD. Stable. C/w duonebs prn, hold singulair. 7. Depression. Stable. C/w sertraline HS. 8. TARAS uses oxygen at night. 9. GI px. PPI IV. 10. DVT px. TEds, SCDs. DISPOSITION: Admitted under inpatient status. Plan is discharge home when medically improved. VS, I&O, 24H, Fishbone Vital Signs/I&O Vital Signs Date Time Temp Pulse Resp B/P (MAP) Pulse Ox O2 Delivery O2 Flow Rate FiO2 03/28/20 10:00 0.5 03/28/20 08:30 96.4 64 14 153/76 (101) 96 Nasal Cannula I&O- Last 24 Hours up to 6 AM 03/28/20 05:59 Intake Total 2605 ml Output Total 650 ml Balance 1955 ml Laboratory Data 24H LABS Laboratory Tests 2 03/27/20 17:40: Bedside Glucose (Misc Panel) 141H 03/27/20 23:52: Bedside Glucose (Misc Panel) 117H 03/28/20 04:01: Immature Granulocyte % (Auto) 0.3, Neutrophils (%) (Auto) 60.2, Lymphocytes (%) (Auto) 26.3, Monocytes (%) (Auto) 8.9H, Eosinophils (%) (Auto) 3.7H, Basophils (%) (Auto) 0.6, Neutrophils # (Auto) 4.3, Lymphocytes # (Auto) 1.9, Monocytes # (Auto) 0.6, Eosinophils # (Auto) 0.3, Basophils # (Auto) 0.0, Nucleated Red Blood Cells % (auto) 0.0, Anion Gap 5L, Glomerular Filtration Rate > 60.0, Calcium Level 7.9L 03/28/20 05:57: Bedside Glucose (Misc Panel) 94 03/28/20 11:34: Bedside Glucose (Misc Panel) 124H CBC/BMP Laboratory Tests 03/28/20 04:01 Current Medications Current Medications Medications (Trade) Dose Ordered Sig/Vera Route PRN Reason Start Time Stop Time Status Last Admin Dose Admin Albuterol/ Ipratropium (Duoneb (Ipr 0.5mg/Alb 2.5mg)) 3 ml Q6HP PRN NEB SOB/WHEEZING 03/25/20 20:15 Dextrose (Dextrose 50%) 25 ml ASDIRECTED PRN IV SEE LABEL COMMENTS 03/25/20 21:30 Dextrose (Dextrose 50%) 50 ml STAT STAT IV 03/25/20 21:13 03/25/20 21:20 DC 03/25/20 21:27 Dextrose/Sodium Chloride 1,000 ml @ 75 mls/hr [id number] IV 03/27/20 07:30 03/27/20 16:52 DC 03/27/20 08:10 Dextrose/Water 1,000 ml @ 100 mls/hr Q10H IV 03/25/20 19:45 03/27/20 07:27 DC 03/26/20 16:49 Glucagon (Glucagon) 1 mg ASDIRECTED PRN SC SEE LABEL COMMENTS 03/25/20 21:30 Glucose (Glucose) 16 GM ASDIRECTED PRN PO SEE LABEL COMMENTS 03/25/20 21:30 Home Med (Med Rec Complete!) ASDIRECTED XX 03/25/20 18:15 03/25/20 18:51 DC Insulin Human Lispro (HumaLOG INSULIN) SEE PROTOCOL TABLE Q6H SC 03/27/20 18:00 03/27/20 17:45 Losartan Potassium (Cozaar) 50 mg DAILY PO 03/26/20 09:00 03/26/20 15:24 DC 03/26/20 08:29 Metoprolol Succinate (TopROL XL) 50 mg DAILY PO 03/26/20 09:00 03/26/20 15:24 DC 03/26/20 08:29 Montelukast Sodium (Singulair) 10 mg DAILY PO 03/26/20 09:00 03/26/20 15:24 DC 03/26/20 08:29 Nystatin (Mycostatin Powder, Nystop) APPLY TO AFFECTED AREA BID TOP 03/25/20 21:00 03/28/20 08:51 Ondansetron HCl (ZOFRAN INJection) 4 mg Q6HP PRN IV NAUSEA OR VOMITING 03/25/20 19:45 Pantoprazole Sodium (Protonix) 40 mg BID IV 03/28/20 21:00 Pantoprazole Sodium (Protonix) 40 mg DAILY IV 03/26/20 09:00 03/27/20 16:52 DC 03/27/20 08:10 Pantoprazole Sodium (Protonix) 40 mg DAILY PO 03/28/20 09:00 03/28/20 11:18 DC 03/28/20 08:51 Piperacillin Sod/ Tazobactam Sod 3.375 gm/Dextrose 50 ml @ 50 mls/hr Q6H IV 03/26/20 16:00 03/28/20 08:52 Potassium Chloride 10 meq/ IV Miscellaneous Supplies 100 ml @ 100 mls/hr 0645,0745 IV 03/26/20 07:45 03/26/20 12:00 DC 03/26/20 06:52 Potassium Chloride 10 meq/ IV Miscellaneous Supplies 100 ml @ 100 mls/hr 2130,2230 IV 03/25/20 21:30 03/25/20 23:29 DC 03/25/20 23:07 Potassium Chloride 10 meq/ IV Miscellaneous Supplies 100 ml @ 100 mls/hr Q1H IV 03/26/20 17:00 03/26/20 20:59 DC 03/26/20 21:25 Sertraline HCl (Zoloft) 100 mg QHS PO 03/25/20 21:00 03/26/20 15:24 DC 03/25/20 21:28 Sodium Chloride 1,000 ml @ 75 mls/hr [id number] IV 03/27/20 17:00 03/28/20 06:01 Sucralfate (Carafate Suspension) 1 gm Q6H PO 03/27/20 18:00 03/28/20 11:58 Allergies Coded Allergies: ibuprofen (Verified Adverse Reaction, Unknown, ANGRY, 03/25/20) oxycodone (Verified Adverse Reaction, Unknown, ANGRY, 03/25/20) Myrna Kay MD Mar 28, 2020 15:01
[2020-03-28] MEDS: CYANOCOBALAMIN 500 MCG TAB PO SCH (16:35)
[2020-03-28 22:00] VITALS: BP 103/64
[2020-03-28] MEDS: SIMVASTATIN 20 MG TAB PO SCH (22:38)
[2020-03-28] MEDS: EZETIMIBE 10 MG TAB (ZETIA) PO SCH (22:38)
[2020-03-28] MEDS: SERTRALINE 100 MG TAB PO SCH (22:39)
[2020-03-28] MEDS: PANTOPRAZOLE 40MG VIAL (C9113 PER 1) IV SCH (22:40)
[2020-03-29] MEDS: traMADol 50 MG TAB PO PRN (00:57)
[2020-03-29] MEDS: PIPERACILLIN/TAZOBACTAM SOD 3.375 GM in D5W MINI-BAG PLUS 50 ML IV SCH ×4 (03:15→21:01)
[2020-03-29 06:00] VITALS: BP 126/55
[2020-03-29] MEDS: HumaLOG INSULIN (NovoLOG) PER UNIT SC SCH ×4 (06:00→23:52)
[2020-03-29 06:07] LABS: BASO # 0.1 10^3/uL (0.0-0.2); BASO % 0.8 % (0.0-1.0); EOS # 0.2 10^3/uL (0.0-0.5); EOS % 3.7 % (0.0-3.0); HEMOGLOBIN 11.1 g/dl (12.0-15.5); LYMPH # 1.8 10^3/uL (1.5-5.0); LYMPH % 28.7 % (24.0-44.0); MEAN CORPUSCULAR HEMOGLOBIN 27.9 pg (27.0-33.0); MEAN CORPUSCULAR HGB CONC 31.7 g/dl (32.0-36.5); MEAN CORPUSCULAR VOLUME 87.9 fl (80.0-96.0); MONO # 0.6 10^3/uL (0.0-0.8); NEUTROPHILS # 3.5 10^3/uL (1.5-8.5); NEUTROPHILS % 56.5 % (36.0-66.0); PLATELET COUNT, AUTOMATED 219 10^3/uL (150-450); RED BLOOD COUNT 3.98 10^6/uL (4.00-5.40); WHITE BLOOD COUNT 6.3 10^3/uL (4.0-10.0)
[2020-03-29] MEDS: SUCRALFATE SUSP 1GM/10ML UD PO SCH ×4 (06:17→23:55)
[2020-03-29 06:32] LABS: BLOOD UREA NITROGEN 7 MG/DL (7-18); CALCIUM LEVEL 8.4 MG/DL (8.8-10.2); CARBON DIOXIDE LEVEL 31 MEQ/L (21-32); CHLORIDE LEVEL 104 MEQ/L (98-107); CREATININE FOR GFR 0.82 MG/DL (0.55-1.30); GLOMERULAR FILTRATION RATE > 60.0 (>39); GLUCOSE, FASTING 96 MG/DL (70-100); POTASSIUM SERUM 3.3 MEQ/L (3.5-5.1); SODIUM LEVEL 141 MEQ/L (136-145)
[2020-03-29] MEDS: PANTOPRAZOLE 40MG VIAL (C9113 PER 1) IV SCH (08:37)
[2020-03-29] MEDS: NYSTATIN 100,000 UNITS/GM TOPICAL PWD 15 GM TOP SCH ×2 (08:37→20:48)
[2020-03-29] MEDS: CYANOCOBALAMIN 500 MCG TAB PO SCH (08:38)
[2020-03-29] MEDS: POTASSIUM CHLORIDE 10 MEQ SR TABLET PO SCH (08:38)
[2020-03-29 14:00] VITALS: BP 144/73
--- NOTE | 2020-03-29 17:56 | IPNPDOC ---
Date Seen The patient was seen on 03/29/20. Progress Note SUBJECTIVE: No bleeding overnight, chronic nausea but no vomiting. Tolerating clear liquid diet, no bleeding. Advance to soft diet today and see how tolerates. The patient denies chest pain, shortness of breath, fevers or chills. OBJECTIVE: VITAL SIGNS: Please see below PHYSICAL EXAMINATION: CONSTITUTIONAL: No acute distress, resting comfortably, AAO x 3 EYES: PERRLA, EOM intact HENT, MOUTH: Normocephalic, atraumatic, moist mucous membranes NECK: SUPPLE, no JVD, no lymphadenopathy, no carotid bruit CV: Regular rate and rhythm, S1S2 normal, no murmurs/rubs/gallops RESPIRATORY: Clear to auscultation bilaterally, no rales/rhonchi/wheezes GI: obese abdomen, BS positive in 4 quadrants, soft, nontender, nondistended, no rebound or guarding, no organomegaly : Deferred MUSCULOSKELETAL: Normal ROM. No cyanosis, clubbing, swelling, joint deformity, extremity edema INTEGUMENTARY: Intact, no rashes, no lesions, no erythema NEUROLOGIC: Cranial Nerves II-XII are intact, no focal deficits CURRENT MEDICATIONS: Please see below LABORATORY DATA: Please see below IMAGING: No new imaging. ASSESSMENT: 74 y/o F admitted for dysphagia s/p esophageal stricture dilation 03/26/20. PLAN: 1. Esophageal stricture, possibly 2/2 to eosinophilic esophagitis. - EGD 03/26/20, s/p dilation with biopsies pending. - Tolerating CLD well, advance to soft diet today. - C/w PPI, carafate. - Likely discharge 03/30/20 with ciprofloxacin to stop on 03/31/10. Specific directions from GI are: - Telephone GI clinic for pathology results in 2 weeks. - Return to GI clinic in 3 weeks. - Repeat upper endoscopy in 4 weeks to check healing and for retreatment. - C/w carafate 1 gm QID liquid x 6 weeks after discharge - C/w PPI after discharge. 4. HTN. Stable. C/w losartan and metoprolol. 5. HLD. C/w statin and zetia 6. COPD. Stable. C/w duonebs prn. 7. Depression. Stable. C/w sertraline HS. 8. TARAS uses oxygen at night. 9. GI px. PPI PO. 10. DVT px. TEds, SCDs. DISPOSITION: Admitted under inpatient status. Plan is discharge home 03/30/20 with home services, f/u with GI . VS, I&O, 24H, Fishbone Vital Signs/I&O Vital Signs Date Time Temp Pulse Resp B/P (MAP) Pulse Ox O2 Delivery O2 Flow Rate FiO2 03/29/20 14:00 97.2 70 16 144/73 (96) 97 Room Air 03/29/20 12:30 0.5 I&O- Last 24 Hours up to 6 AM 03/29/20 06:00 Intake Total 1120 ml Output Total 0 ml Balance 1120 ml Laboratory Data 24H LABS Laboratory Tests 2 03/28/20 17:58: Bedside Glucose (Misc Panel) 125H 03/28/20 23:25: Bedside Glucose (Misc Panel) 101 03/29/20 05:42: Immature Granulocyte % (Auto) 0.3, Neutrophils (%) (Auto) 56.5, Lymphocytes (%) (Auto) 28.7, Monocytes (%) (Auto) 10.0H, Eosinophils (%) (Auto) 3.7H, Basophils (%) (Auto) 0.8, Neutrophils # (Auto) 3.5, Lymphocytes # (Auto) 1.8, Monocytes # (Auto) 0.6, Eosinophils # (Auto) 0.2, Basophils # (Auto) 0.1, Nucleated Red Blood Cells % (auto) 0.0, Anion Gap 6L, Glomerular Filtration Rate > 60.0, Calcium Level 8.4L 03/29/20 06:08: Bedside Glucose (Misc Panel) 86 03/29/20 11:37: Bedside Glucose (Misc Panel) 128H 03/29/20 17:31: Bedside Glucose (Misc Panel) 87 CBC/BMP Laboratory Tests 03/29/20 05:42 Current Medications Current Medications Medications (Trade) Dose Ordered Sig/Vera Route PRN Reason Start Time Stop Time Status Last Admin Dose Admin Albuterol/ Ipratropium (Duoneb (Ipr 0.5mg/Alb 2.5mg)) 3 ml Q6HP PRN NEB SOB/WHEEZING 03/25/20 20:15 Cyanocobalamin (Vitamin B12) 1,000 mcg DAILY PO 6/7/20 09:00 03/29/20 08:38 Dextrose (Dextrose 50%) 25 ml ASDIRECTED PRN IV SEE LABEL COMMENTS 03/25/20 21:30 Dextrose (Dextrose 50%) 50 ml STAT STAT IV 03/25/20 21:13 03/25/20 21:20 DC 03/25/20 21:27 Dextrose/Sodium Chloride 1,000 ml @ 75 mls/hr [id number] IV 03/27/20 07:30 03/27/20 16:52 DC 03/27/20 08:10 Dextrose/Water 1,000 ml @ 100 mls/hr Q10H IV 03/25/20 19:45 03/27/20 07:27 DC 03/26/20 16:49 EZETIMIBE (Zetia) 10 mg QHS PO 03/28/20 21:00 03/28/20 22:38 Glucagon (Glucagon) 1 mg ASDIRECTED PRN SC SEE LABEL COMMENTS 03/25/20 21:30 Glucose (Glucose) 16 GM ASDIRECTED PRN PO SEE LABEL COMMENTS 03/25/20 21:30 Home Med (Med Rec Complete!) ASDIRECTED XX 03/25/20 18:15 03/25/20 18:51 DC Insulin Human Lispro (HumaLOG INSULIN) SEE PROTOCOL TABLE Q6H SC 03/27/20 18:00 03/29/20 12:27 Losartan Potassium (Cozaar) 50 mg DAILY PO 03/26/20 09:00 03/26/20 15:24 DC 03/26/20 08:29 Metoprolol Succinate (TopROL XL) 50 mg DAILY PO 03/26/20 09:00 03/26/20 15:24 DC 03/26/20 08:29 Montelukast Sodium (Singulair) 10 mg DAILY PO 03/26/20 09:00 03/26/20 15:24 DC 03/26/20 08:29 Nystatin (Mycostatin Powder, Nystop) APPLY TO AFFECTED AREA BID TOP 03/25/20 21:00 03/29/20 08:37 Ondansetron HCl (ZOFRAN INJection) 4 mg Q6HP PRN IV NAUSEA OR VOMITING 03/25/20 19:45 03/28/20 18:15 Pantoprazole Sodium (Protonix) 40 mg BID IV 03/28/20 21:00 03/29/20 08:37 Pantoprazole Sodium (Protonix) 40 mg DAILY IV 03/26/20 09:00 03/27/20 16:52 DC 03/27/20 08:10 Pantoprazole Sodium (Protonix) 40 mg DAILY PO 03/28/20 09:00 03/28/20 11:18 DC 03/28/20 08:51 Piperacillin Sod/ Tazobactam Sod 3.375 gm/Dextrose 50 ml @ 50 mls/hr Q6H IV 03/26/20 16:00 03/31/20 16:00 03/29/20 08:38 Potassium Chloride 10 meq/ IV Miscellaneous Supplies 100 ml @ 100 mls/hr 0645,0745 IV 03/26/20 07:45 03/26/20 12:00 DC 03/26/20 06:52 Potassium Chloride 10 meq/ IV Miscellaneous Supplies 100 ml @ 100 mls/hr 2130,2230 IV 03/25/20 21:30 03/25/20 23:29 DC 03/25/20 23:07 Potassium Chloride 10 meq/ IV Miscellaneous Supplies 100 ml @ 100 mls/hr Q1H IV 03/26/20 17:00 03/26/20 20:59 DC 03/26/20 21:25 Potassium Chloride (Micro-K Extencaps) 30 meq DAILY PO 03/29/20 09:00 03/29/20 08:38 Sertraline HCl (Zoloft) 100 mg QHS PO 03/25/20 21:00 03/26/20 15:24 DC 03/25/20 21:28 Sertraline HCl (Zoloft) 100 mg QHS PO 03/28/20 21:00 03/28/20 22:39 Simvastatin (Zocor) 20 mg QHS PO 03/28/20 21:00 03/28/20 22:38 Sodium Chloride 1,000 ml @ 75 mls/hr [id number] IV 03/27/20 17:00 03/28/20 14:50 DC 03/28/20 06:01 Sucralfate (Carafate Suspension) 1 gm Q6H PO 03/27/20 18:00 03/29/20 12:26 Tramadol HCl (Ultram) 50 mg Q6HP PRN PO MODERATE PAIN (PS 5-7) 03/28/20 23:45 03/29/20 00:57 Allergies Coded Allergies: ibuprofen (Verified Adverse Reaction, Unknown, ANGRY, 03/25/20) oxycodone (Verified Adverse Reaction, Unknown, ANGRY, 03/25/20) Myrna Kay MD Mar 29, 2020 17:56
[2020-03-29] MEDS: SERTRALINE 100 MG TAB PO SCH (20:48)
[2020-03-29] MEDS: SIMVASTATIN 20 MG TAB PO SCH (20:48)
[2020-03-29] MEDS: EZETIMIBE 10 MG TAB (ZETIA) PO SCH (20:48)
[2020-03-29 22:00] VITALS: BP 143/68
[2020-03-30] MEDS: PIPERACILLIN/TAZOBACTAM SOD 3.375 GM in D5W MINI-BAG PLUS 50 ML IV SCH ×4 (03:11→21:36)
[2020-03-30] MEDS: SUCRALFATE SUSP 1GM/10ML UD PO SCH ×4 (05:21→23:34)
[2020-03-30 06:00] VITALS: BP 147/68
[2020-03-30] MEDS: HumaLOG INSULIN (NovoLOG) PER UNIT SC SCH ×3 (07:30→16:54)
[2020-03-30 07:37] LABS: BASO # 0.1 10^3/uL (0.0-0.2); BASO % 0.9 % (0.0-1.0); EOS # 0.2 10^3/uL (0.0-0.5); EOS % 4.5 % (0.0-3.0); HEMOGLOBIN 11.9 g/dl (12.0-15.5); LYMPH # 1.6 10^3/uL (1.5-5.0); LYMPH % 29.2 % (24.0-44.0); MEAN CORPUSCULAR HEMOGLOBIN 27.9 pg (27.0-33.0); MEAN CORPUSCULAR HGB CONC 31.3 g/dl (32.0-36.5); MEAN CORPUSCULAR VOLUME 89.2 fl (80.0-96.0); MONO # 0.6 10^3/uL (0.0-0.8); MONO % 10.3 % (0.0-5.0); NEUTROPHILS # 2.9 10^3/uL (1.5-8.5); NEUTROPHILS % 54.7 % (36.0-66.0); PLATELET COUNT, AUTOMATED 247 10^3/uL (150-450); RED BLOOD COUNT 4.26 10^6/uL (4.00-5.40); WHITE BLOOD COUNT 5.3 10^3/uL (4.0-10.0)
[2020-03-30 07:47] LABS: BLOOD UREA NITROGEN 6 MG/DL (7-18); CALCIUM LEVEL 8.4 MG/DL (8.8-10.2); CARBON DIOXIDE LEVEL 32 MEQ/L (21-32); CHLORIDE LEVEL 105 MEQ/L (98-107); CREATININE FOR GFR 0.85 MG/DL (0.55-1.30); GLOMERULAR FILTRATION RATE > 60.0 (>39); GLUCOSE, FASTING 98 MG/DL (70-100); POTASSIUM SERUM 3.2 MEQ/L (3.5-5.1); SODIUM LEVEL 142 MEQ/L (136-145)
[2020-03-30] MEDS: PANTOPRAZOLE 40MG TAB (PROTONIX) PO SCH (08:30)
[2020-03-30] MEDS: CYANOCOBALAMIN 500 MCG TAB PO SCH (08:30)
[2020-03-30] MEDS: POTASSIUM CHLORIDE 10 MEQ SR TABLET PO SCH (08:30)
[2020-03-30] MEDS: NYSTATIN 100,000 UNITS/GM TOPICAL PWD 15 GM TOP SCH (08:30)
[2020-03-30] MEDS: KCL 10MEQ/100ML SWI (KRUN) 10 MEQ in IV 1 EA IV SCH ×4 (11:12→17:03)
[2020-03-30 14:00] VITALS: BP 146/93
[2020-03-30] MEDS ORDERED: KCL 10MEQ IN STERILE WATER 100ML As Ordered ONE (17:01)
--- NOTE | 2020-03-30 17:52 | IPNPDOC ---
Text Note Date of Service The patient was seen on 03/30/20. NOTE SUBJECTIVE: -No issues overnight -Tolerating a regular diet -Plan had been for home discharge but did not clear PT, will keep working with PT and hopefully be cleared for home soon OBJECTIVE: VITAL SIGNS: Please see below GENERAL: No acute distress, resting comfortably in chair EYES: PERRLA, EOMI HENT, MOUTH: Normocephalic, atraumatic, moist mucous membranes NECK: SUPPLE, no JVD, no adenopathy CV: Regular rhythm but with some ectopic beats, has systolic murmur heard thro ughout the precordium RESPIRATORY: Clear to auscultation bilaterally, has bibasilar crackles GI: obese abdomen, normoactive sounds, soft, nontender, nondistended, no rebound or guarding, no organomegaly EXT: No extremity edema, WWP SKIN: Intact, no rashes, no lesions, no erythema NEUROLOGIC: Cranial Nerves II-XII are intact, no focal deficits CURRENT MEDICATIONS: Please see below LABORATORY DATA: Reviewed WBC 5.3 hgb 11.9 platelets 247 Cr 0.88 K 3.2 (repleted) IMAGING: No new imaging. ASSESSMENT: 74 y/o W admitted for dysphagia s/p esophageal stricture dilation 03/26/20. PLAN: 1. Esophageal stricture, possibly 2/2 to eosinophilic esophagitis. - EGD 03/26/20, s/p dilation with biopsies pending. - Tolerating regular diet. - C/w PPI, carafate. - ciprofloxacin to stop on 03/31/10. Specific directions from GI are: - Telephone GI clinic for pathology results in 2 weeks. - Return to GI clinic in 3 weeks. - Repeat upper endoscopy in 4 weeks to check healing and for retreatment. - C/w carafate 1 gm QID liquid x 6 weeks after discharge - C/w PPI after discharge. 4. HTN. Stable. C/w losartan and metoprolol. 5. HLD. C/w statin and zetia 6. COPD. Stable. C/w duonebs prn. 7. Depression. Stable. C/w sertraline HS. 8. TARAS uses oxygen at night. 9. GI px. PPI PO. 10. DVT px. TEds, SCDs. DISPOSITION: Admitted under inpatient status. Plan is discharge home once c leared by PT/OT with home services, f/u with GI. VS,Nadeen, I+O VS, Anahye, I+O Laboratory Tests 03/30/20 06:32 Vital Signs Date Time Temp Pulse Resp B/P (MAP) Pulse Ox O2 Delivery O2 Flow Rate FiO2 03/30/20 14:00 98.2 89 20 146/93 (110) 92 Room Air 03/30/20 06:00 0.5 I&O- Last 24 Hours up to 6 AM 03/30/20 06:00 Intake Total 580 ml Balance 580 ml MARY BRODERICK MD Mar 30, 2020 17:52
[2020-03-30] MEDS: EZETIMIBE 10 MG TAB (ZETIA) PO SCH (20:21)
[2020-03-30] MEDS: SERTRALINE 100 MG TAB PO SCH (20:21)
[2020-03-30] MEDS: SIMVASTATIN 20 MG TAB PO SCH (20:21)
[2020-03-30] MEDS ORDERED: HumaLOG INSULIN (NovoLOG) PER UNIT SC SCH (21:00)
[2020-03-30 22:00] VITALS: BP 144/88
[2020-03-31] MEDS: NYSTATIN 100,000 UNITS/GM TOPICAL PWD 15 GM TOP SCH ×3 (02:01→20:41)
[2020-03-31] MEDS: PIPERACILLIN/TAZOBACTAM SOD 3.375 GM in D5W MINI-BAG PLUS 50 ML IV SCH ×2 (03:24→09:17)
[2020-03-31] MEDS: SUCRALFATE SUSP 1GM/10ML UD PO SCH ×4 (05:23→23:18)
[2020-03-31 06:00] VITALS: BP 149/75
[2020-03-31 07:07] LABS: BASO # 0.1 10^3/uL (0.0-0.2); BASO % 0.8 % (0.0-1.0); EOS # 0.2 10^3/uL (0.0-0.5); EOS % 3.5 % (0.0-3.0); HEMATOCRIT 36.1 % (36.0-47.0); HEMOGLOBIN 11.7 g/dl (12.0-15.5); LYMPH # 1.8 10^3/uL (1.5-5.0); LYMPH % 27.8 % (24.0-44.0); MEAN CORPUSCULAR HEMOGLOBIN 28.2 pg (27.0-33.0); MEAN CORPUSCULAR HGB CONC 32.4 g/dl (32.0-36.5); MONO # 0.6 10^3/uL (0.0-0.8); MONO % 8.8 % (0.0-5.0); NEUTROPHILS # 3.9 10^3/uL (1.5-8.5); NEUTROPHILS % 58.6 % (36.0-66.0); PLATELET COUNT, AUTOMATED 267 10^3/uL (150-450); RED BLOOD COUNT 4.15 10^6/uL (4.00-5.40); WHITE BLOOD COUNT 6.6 10^3/uL (4.0-10.0)
[2020-03-31 07:19] LABS: BLOOD UREA NITROGEN 5 MG/DL (7-18); CALCIUM LEVEL 8.3 MG/DL (8.8-10.2); CARBON DIOXIDE LEVEL 31 MEQ/L (21-32); CHLORIDE LEVEL 105 MEQ/L (98-107); CREATININE FOR GFR 0.68 MG/DL (0.55-1.30); GLOMERULAR FILTRATION RATE > 60.0 (>39); GLUCOSE, FASTING 108 MG/DL (70-100); POTASSIUM SERUM 3.7 MEQ/L (3.5-5.1); SODIUM LEVEL 143 MEQ/L (136-145)
[2020-03-31] MEDS: HumaLOG INSULIN (NovoLOG) PER UNIT SC SCH ×4 (07:30→20:32)
[2020-03-31] MEDS: CYANOCOBALAMIN 500 MCG TAB PO SCH (09:16)
[2020-03-31] MEDS: PANTOPRAZOLE 40MG TAB (PROTONIX) PO SCH (09:16)
[2020-03-31] MEDS: POTASSIUM CHLORIDE 10 MEQ SR TABLET PO SCH (09:17)
[2020-03-31] MEDS: traMADol 50 MG TAB PO PRN (09:18)
[2020-03-31 14:00] VITALS: BP 176/104
--- NOTE | 2020-03-31 15:52 | IPNPDOC ---
Text Note Date of Service The patient was seen on 03/31/20. NOTE SUBJECTIVE: -No issues overnight -Some nausea this AM OBJECTIVE: VITAL SIGNS: Please see below GENERAL: No acute distress, resting comfortably in chair EYES: PERRLA, EOMI HENT, MOUTH: Normocephalic, atraumatic, moist mucous membranes NECK: SUPPLE, no JVD, no adenopathy CV: RRR, holosystolic murmur heard throughout the precordium, loudest at RUSB RESPIRATORY: Clear to auscultation bilaterally, has bibasilar crackles GI: obese abdomen, normoactive sounds, soft, nontender, nondistended, no rebound or guarding, no organomegaly EXT: No extremity edema, WWP SKIN: Intact, no rashes, no lesions, no erythema NEUROLOGIC: Cranial Nerves II-XII are intact, no focal deficits CURRENT MEDICATIONS: Please see below LABORATORY DATA: Reviewed. 03/31 labs pending IMAGING: No new imaging. ASSESSMENT: 74 y/o W admitted for dysphagia s/p esophageal stricture dilation 03/26/20. PLAN: 1. Esophageal stricture, possibly 2/2 to eosinophilic esophagitis. - EGD 03/26/20, s/p dilation with biopsies pending. - Tolerating regular consistency diet. - C/w PPI, carafate. - Pip/tazo to stop today, 03/31/10. 5d total. Specific directions from GI are: - Telephone GI clinic for pathology results in 2 weeks. - Return to GI clinic in 3 weeks. - Repeat upper endoscopy in 4 weeks to check healing and for retreatment. - C/w carafate 1 gm QID liquid x 6 weeks after discharge - C/w PPI after discharge. 4. HTN. Stable. C/w losartan and metoprolol. 5. HLD. C/w statin and zetia 6. COPD. Stable. C/w duonebs prn. 7. Depression. Stable. C/w sertraline HS. 8. TARAS uses oxygen at night. 9. GI px. PPI PO. 10. DVT px. TEds, SCDs. DISPOSITION: Admitted under inpatient status. Plan is for dc to [facility], f/u with GI. VS,Fishbone, I+O VS, Fishbone, I+O Vital Signs Date Time Temp Pulse Resp B/P (MAP) Pulse Ox O2 Delivery O2 Flow Rate FiO2 03/30/20 22:10 1.0 03/30/20 22:00 98.0 80 18 144/88 (106) 94 Room Air I&O- Last 24 Hours up to 6 AM 03/31/20 06:00 Intake Total 1270 ml Output Total 400 ml Balance 870 ml MARY BRODERICK MD Mar 31, 2020 06:59
[2020-03-31] MEDS ORDERED: GLUCAGON INJ 1MG VIAL SC PRN (16:45)
[2020-03-31] MEDS ORDERED: GLUCOSE 4GM CHEW TABLET PO PRN (16:45)
[2020-03-31] MEDS ORDERED: IPRATROPIUM 0.5MG/ALBUTEROL 2.5MG INH SOL UD 3ML (DUONEB) NEB PRN (16:45)
[2020-03-31] MEDS ORDERED: DEXTROSE 50% 50 ML SYRINGE IV PRN (16:45)
[2020-03-31 18:54] VITALS: BP 142/64
[2020-03-31] MEDS: SERTRALINE 100 MG TAB PO SCH (20:38)
[2020-03-31] MEDS: EZETIMIBE 10 MG TAB (ZETIA) PO SCH (20:38)
[2020-03-31] MEDS: SIMVASTATIN 20 MG TAB PO SCH (20:38)
[2020-03-31 22:00] VITALS: BP 155/85
[2020-04-01] MEDS: SUCRALFATE SUSP 1GM/10ML UD PO SCH ×4 (05:40→23:00)
[2020-04-01 06:00] VITALS: BP 150/78
[2020-04-01] MEDS: HumaLOG INSULIN (NovoLOG) PER UNIT SC SCH ×4 (07:10→20:37)
[2020-04-01] MEDS: ONDANSETRON 4MG/2ML VIAL IV PRN (08:51)
[2020-04-01] MEDS: PANTOPRAZOLE 40MG TAB (PROTONIX) PO SCH (09:31)
[2020-04-01] MEDS: CYANOCOBALAMIN 500 MCG TAB PO SCH (09:31)
[2020-04-01] MEDS: POTASSIUM CHLORIDE 10 MEQ SR TABLET PO SCH (09:31)
[2020-04-01] MEDS: NYSTATIN 100,000 UNITS/GM TOPICAL PWD 15 GM TOP SCH ×2 (09:32→20:38)
[2020-04-01] MEDS: traMADol 50 MG TAB PO PRN (12:59)
[2020-04-01 14:00] VITALS: BP 153/90
--- NOTE | 2020-04-01 15:39 | IPNPDOC ---
Text Note Date of Service The patient was seen on 04/01/20. NOTE SUBJECTIVE: -No issues overnight -Had an episode of emesis this morning and reported significant nausea around breakfast time OBJECTIVE: VITAL SIGNS: Please see below GENERAL: No acute distress, resting comfortably in chair EYES: PERRLA, EOMI HENT, MOUTH: Normocephalic, atraumatic, moist mucous membranes NECK: SUPPLE, no JVD, no adenopathy CV: RRR, holosystolic murmur heard throughout the precordium, loudest at RUSB RESPIRATORY: Clear to auscultation bilaterally, has bibasilar crackles GI: obese abdomen, normoactive sounds, soft, nontender, nondistended, no rebound or guarding, no organomegaly EXT: No extremity edema, WWP SKIN: Intact, no rashes, no lesions, no erythema NEUROLOGIC: Cranial Nerves II-XII are intact, no focal deficits CURRENT MEDICATIONS: Please see below LABORATORY DATA: Reviewed. IMAGING: No new imaging. ASSESSMENT: 74 y/o W admitted for dysphagia s/p esophageal stricture dilation 03/26/20. PLAN: 1. Esophageal stricture, possibly 2/2 to eosinophilic esophagitis. - EGD 03/26/20, s/p dilation with biopsies pending. - had bedside swall eval today after emesis episode and recommended for pureed diet and thin liquids as well as an official barium swallow eval - C/w PPI, carafate. - s/p 5d of pip/tazo per GI recs, ended 03/31 Specific directions from GI are: - Telephone GI clinic for pathology results in 2 weeks. - Return to GI clinic in 3 weeks. - Repeat upper endoscopy in 4 weeks to check healing and for retreatment. - C/w carafate 1 gm QID liquid x 6 weeks after discharge - C/w PPI after discharge. 4. HTN. Stable. C/w losartan and metoprolol. 5. HLD. C/w statin and zetia 6. COPD. Stable. C/w duonebs prn. 7. Depression. Stable. C/w sertraline HS. 8. TARAS uses oxygen at night. 9. GI px. PPI PO. 10. DVT px. TEds, SCDs. DISPOSITION: Admitted under inpatient status. Plan is for dc to STR, f/u with GI. VS,[place], I+O VS, Fishbone, I+O Vital Signs Date Time Temp Pulse Resp B/P (MAP) Pulse Ox O2 Delivery O2 Flow Rate FiO2 04/01/20 14:00 97.8 85 18 153/90 (111) 96 Room Air 03/31/20 06:00 1.0 I&O- Last 24 Hours up to 6 AM 04/01/20 05:59 Intake Total 650 ml Output Total 500 ml Balance 150 ml MARY BRODERICK MD Apr 01, 2020 15:39
[2020-04-01] MEDS: SERTRALINE 100 MG TAB PO SCH (20:37)
[2020-04-01] MEDS: EZETIMIBE 10 MG TAB (ZETIA) PO SCH (20:37)
[2020-04-01] MEDS: SIMVASTATIN 20 MG TAB PO SCH (20:37)
[2020-04-01 22:00] VITALS: BP 139/69
[2020-04-02] MEDS: SUCRALFATE SUSP 1GM/10ML UD PO SCH ×4 (05:17→23:10)
[2020-04-02 06:00] VITALS: BP_SYST 134; BP_SYST 143; BP_DIAS 70; BP_DIAS 82
[2020-04-02] MEDS: HumaLOG INSULIN (NovoLOG) PER UNIT SC SCH ×4 (07:10→21:00)
[2020-04-02] MEDS: ONDANSETRON 4MG/2ML VIAL IV PRN (07:50)
[2020-04-02] MEDS: NYSTATIN 100,000 UNITS/GM TOPICAL PWD 15 GM TOP SCH ×2 (08:43→20:06)
[2020-04-02] MEDS: CYANOCOBALAMIN 500 MCG TAB PO SCH (08:43)
[2020-04-02] MEDS: POTASSIUM CHLORIDE 10 MEQ SR TABLET PO SCH (08:43)
[2020-04-02] MEDS: PANTOPRAZOLE 40MG TAB (PROTONIX) PO SCH (08:43)
--- NOTE | 2020-04-02 10:52 | IPNPDOC ---
Text Note Date of Service The patient was seen on 04/02/20. NOTE SUBJECTIVE: -No issues overnight -Had an episode of emesis yesterday morning and after swallow eval was placed on pureed diet with thin liquids, due for cookie swallow/barium eval this AM OBJECTIVE: VITAL SIGNS: Please see below GENERAL: No acute distress, resting comfortably in chair EYES: PERRLA, EOMI HENT, MOUTH: Normocephalic, atraumatic, moist mucous membranes NECK: SUPPLE, no JVD, no adenopathy CV: RRR, holosystolic murmur heard throughout the precordium, loudest at RUSB RESPIRATORY: Bibasilar crackles, otherwise clear GI: obese abdomen, normoactive sounds, soft, nontender, nondistended, no rebound or guarding, no organomegaly EXT: No extremity edema, WWP SKIN: Intact, no rashes, no lesions, no erythema NEUROLOGIC: Cranial Nerves II-XII are intact, no focal deficits CURRENT MEDICATIONS: Please see below LABORATORY DATA: Reviewed. WBC 6.6, hgb 11.7, Cr 0.68 IMAGING: No new imaging. ASSESSMENT: 74 y/o W admitted for dysphagia s/p esophageal stricture dilation 03/26/20. PLAN: 1. Esophageal stricture, possibly 2/2 to eosinophilic esophagitis. - EGD 03/26/20, s/p dilation with biopsies pending. - had bedside swall eval on 04/01 after emesis episode and recommended for pureed diet and thin liquids as well as an official barium swallow eval due today - C/w PPI, carafate. - s/p 5d of pip/tazo per GI recs, ended 03/31 Specific directions from GI are: - Telephone GI clinic for pathology results in 2 weeks. - Return to GI clinic in 3 weeks. - Repeat upper endoscopy in 4 weeks to check healing and for retreatment. - C/w carafate 1 gm QID liquid x 6 weeks after discharge - C/w PPI after discharge. 4. HTN. Stable. C/w losartan and metoprolol. 5. HLD. C/w statin and zetia 6. COPD. Stable. C/w duonebs prn. 7. Depression. Stable. C/w sertraline HS. 8. TARAS uses oxygen at night. 9. GI px. PPI PO. 10. DVT px. TEds, SCDs. DISPOSITION: Admitted under inpatient status. Plan is for dc to STR, hopefully soon, after barium swallow eval, f/u with GI outpatient. VS,Fishbone, I+O VS, Fishbone, I+O Vital Signs Date Time Temp Pulse Resp B/P (MAP) Pulse Ox O2 Delivery O2 Flow Rate FiO2 04/02/20 06:00 98.2 77 18 143/70 (94) 92 Room Air 03/31/20 06:00 1.0 I&O- Last 24 Hours up to 6 AM 04/02/20 06:00 Intake Total 480 ml Output Total 75 ml Balance 405 ml MARY BRODERICK MD Apr 02, 2020 07:47
[2020-04-02] MEDS ORDERED: VARIBAR NECTAR 40% w/v 240ML SUSP BTL As Ordered ONE (11:02)
[2020-04-02] MEDS ORDERED: VARIBAR PUDDING 40% w/v 230ML TUBE As Ordered ONE (11:02)
[2020-04-02] MEDS ORDERED: BARIUM SULFATE 700 MG TABLET (E-Z-DISK) As Ordered ONE (11:03)
[2020-04-02] MEDS ORDERED: E-Z-PAQUE 96% w/w SUSP 176GM BTL As Ordered ONE (11:03)
[2020-04-02] MEDS: ONDANSETRON 4 MG TAB PO SCH ×2 (12:48→17:03)
[2020-04-02 14:00] VITALS: BP 146/72
--- NOTE | 2020-04-02 16:14 | ECGEPIP ---
[facility] Test Date: 2020-04-02 Pat Name: KATHRIN BARRON Department: Room: [place] [address] Gender: Female Candy Roller: ARMANI : 1945 Requested By: MARY Olea Order Number: [id number] Reading MD: Mohsen Bonilla Measurements Intervals [place] Rate: 80 P: 40 MO: 136 QRS: -9 QRSD: 93 T: 70 QT: 395 QTc: 457 Interpretive Statements SINUS RHYTHM WITH SINUS ARRHYTHMIA LEFT VENTRICULAR HYPERTROPHY AND ST-T CHANGE Comparison tracing not on file Electronically Signed on 04-02-2020 16:14:36 EDT by Mohsen Bonilla
[2020-04-02] MEDS: SIMVASTATIN 20 MG TAB PO SCH (20:05)
[2020-04-02] MEDS: SERTRALINE 100 MG TAB PO SCH (20:05)
[2020-04-02] MEDS: EZETIMIBE 10 MG TAB (ZETIA) PO SCH (20:05)
[2020-04-02 22:00] VITALS: BP 146/69
[2020-04-03] MEDS: SUCRALFATE SUSP 1GM/10ML UD PO SCH ×4 (05:17→23:31)
[2020-04-03 06:00] VITALS: BP 143/68
[2020-04-03] MEDS: CYANOCOBALAMIN 500 MCG TAB PO SCH (08:06)
[2020-04-03] MEDS: ONDANSETRON 4 MG TAB PO SCH ×3 (08:06→17:55)
[2020-04-03] MEDS: PANTOPRAZOLE 40MG TAB (PROTONIX) PO SCH (08:06)
[2020-04-03] MEDS: HumaLOG INSULIN (NovoLOG) PER UNIT SC SCH ×4 (08:06→21:00)
[2020-04-03] MEDS: POTASSIUM CHLORIDE 10 MEQ SR TABLET PO SCH ×2 (08:06→09:00)
[2020-04-03] MEDS: NYSTATIN 100,000 UNITS/GM TOPICAL PWD 15 GM TOP SCH ×2 (09:49→21:28)
[2020-04-03] MEDS: POTASSIUM CHLORIDE 10% LIQ 20 MEQ/15 ML UDC PO SCH (09:49)
[2020-04-03] MEDS: traMADol 50 MG TAB PO PRN ×2 (12:47→21:52)
--- NOTE | 2020-04-03 13:47 | IPNPDOC ---
Text Note Date of Service The patient was seen on 04/03/20. NOTE SUBJECTIVE: -No issues overnight -Did relatively well on the cookie swallow yesterday was placed on mechanical soft diet OBJECTIVE: VITAL SIGNS: Please see below GENERAL: No acute distress, resting comfortably in chair EYES: PERRLA, EOMI HENT, MOUTH: Normocephalic, atraumatic, moist mucous membranes NECK: SUPPLE, no JVD, no adenopathy CV: RRR, holosystolic murmur heard throughout the precordium, loudest at RUSB RESPIRATORY: Bibasilar crackles, otherwise clear GI: obese abdomen, normoactive sounds, soft, nontender, nondistended, no rebound or guarding, no organomegaly EXT: No extremity edema, WWP SKIN: Intact, no rashes, no lesions, no erythema NEUROLOGIC: Cranial Nerves II-XII are intact, no focal deficits CURRENT MEDICATIONS: Please see below LABORATORY DATA: Reviewed. Stable IMAGING: No new imaging. ASSESSMENT: 74 y/o W admitted for dysphagia s/p esophageal stricture dilation 03/26/20 pending STR placement. PLAN: 1. Esophageal stricture, possibly 2/2 to eosinophilic esophagitis. - EGD 03/26/20, s/p dilation with biopsies pending. - had bedside swall eval on 04/01 after emesis episode and recommended for pureed diet and thin liquids but now s/p swallow eval and placed on mechanical soft - C/w PPI, carafate. - s/p 5d of pip/tazo per GI recs, ended 03/31 Specific directions from GI are: - Telephone GI clinic for pathology results in 2 weeks. - Return to GI clinic in 3 weeks. - Repeat upper endoscopy in 4 weeks to check healing and for retreatment. - C/w carafate 1 gm QID liquid x 6 weeks after discharge - C/w PPI after discharge. 4. HTN. Stable. C/w losartan and metoprolol. 5. HLD. C/w statin and zetia 6. COPD. Stable. C/w duonebs prn. 7. Depression. Stable. C/w sertraline HS. 8. TARAS uses oxygen at night. 9. GI px. PPI PO. 10. DVT px. TEds, SCDs. DISPOSITION: Admitted under inpatient status. Plan is for dc to STR, f/u with GI outpatient. VS,Fishbone, I+O VS, Fishbone, I+O Vital Signs Date Time Temp Pulse Resp B/P (MAP) Pulse Ox O2 Delivery O2 Flow Rate FiO2 04/03/20 06:00 98.1 75 18 143/68 (93) 93 Room Air 03/31/20 06:00 1.0 I&O- Last 24 Hours up to 6 AM 04/03/20 06:00 Intake Total 920 ml Output Total 50 ml Balance 870 ml MARY BRODERICK MD Apr 03, 2020 07:59
[2020-04-03 14:00] VITALS: BP 144/81
[2020-04-03] MEDS: SERTRALINE 100 MG TAB PO SCH (21:27)
[2020-04-03] MEDS: EZETIMIBE 10 MG TAB (ZETIA) PO SCH (21:27)
[2020-04-03] MEDS: SIMVASTATIN 20 MG TAB PO SCH (21:27)
[2020-04-03 22:00] VITALS: BP 134/63
[2020-04-04] MEDS: SUCRALFATE SUSP 1GM/10ML UD PO SCH ×3 (05:42→17:05)
[2020-04-04 06:00] VITALS: BP 144/78
[2020-04-04] MEDS: NYSTATIN 100,000 UNITS/GM TOPICAL PWD 15 GM TOP SCH ×2 (08:06→20:44)
[2020-04-04] MEDS: CYANOCOBALAMIN 500 MCG TAB PO SCH (08:06)
[2020-04-04] MEDS: POTASSIUM CHLORIDE 10% LIQ 20 MEQ/15 ML UDC PO SCH (08:06)
[2020-04-04] MEDS: ONDANSETRON 4 MG TAB PO SCH ×3 (08:07→17:05)
[2020-04-04] MEDS: HumaLOG INSULIN (NovoLOG) PER UNIT SC SCH ×4 (08:07→21:00)
[2020-04-04] MEDS: PANTOPRAZOLE 40MG TAB (PROTONIX) PO SCH (08:07)
--- NOTE | 2020-04-04 11:39 | IPNPDOC ---
Text Note Date of Service The patient was seen on 04/04/20. NOTE SUBJECTIVE: -No issues overnight -No nausea this AM OBJECTIVE: VITAL SIGNS: Please see below GENERAL: No acute distress, resting comfortably in chair EYES: PERRLA, EOMI HENT, MOUTH: Normocephalic, atraumatic, moist mucous membranes, poor dentition NECK: SUPPLE, no JVD, no adenopathy CV: RRR, holosystolic murmur heard throughout the precordium, loudest at RUSB RESPIRATORY: Bibasilar crackles, otherwise clear GI: obese abdomen, normoactive sounds, soft, nontender, nondistended, no rebound or guarding, no organomegaly EXT: No extremity edema, WWP SKIN: Intact, no rashes, no lesions, no erythema NEUROLOGIC: Cranial Nerves II-XII are intact, no focal deficits CURRENT MEDICATIONS: Please see below LABORATORY DATA: Reviewed. Stable IMAGING: No new imaging. ASSESSMENT: 74 y/o W admitted for dysphagia s/p esophageal stricture dilation 03/26/20 pending STR placement. PLAN: 1. Esophageal stricture, possibly 2/2 to eosinophilic esophagitis. - EGD 03/26/20, s/p dilation with biopsies pending. - had bedside swall eval on 04/01 after emesis episode and recommended for pureed diet and thin liquids and s/p cookie swallow eval and placed on mechanical soft on 04/02 - C/w PPI, carafate. - s/p 5d of pip/tazo per GI recs, ended 03/31 Specific directions from GI are: - Telephone GI clinic for pathology results in 2 weeks. - Return to GI clinic in 3 weeks. - Repeat upper endoscopy in 4 weeks to check healing and for retreatment. - C/w carafate 1 gm QID liquid x 6 weeks after discharge - C/w PPI after discharge. 4. HTN. Stable. C/w losartan and metoprolol. 5. HLD. C/w statin and zetia 6. COPD. Stable. C/w duonebs prn. 7. Depression. Stable. C/w sertraline HS. 8. TARAS uses oxygen at night. 9. GI px. PPI PO. 10. DVT px. TEds, SCDs. DISPOSITION: Admitted under inpatient status. Plan is for dc to STR, f/u with GI outpatient. VS,Fishbone, I+O VS, Fishbone, I+O Vital Signs Date Time Temp Pulse Resp B/P (MAP) Pulse Ox O2 Delivery O2 Flow Rate FiO2 04/04/20 06:00 97.7 82 18 144/78 (100) 94 Room Air 03/31/20 06:00 1.0 I&O- Last 24 Hours up to 6 AM 04/04/20 06:00 Intake Total 1140 ml Output Total 100 ml Balance 1040 ml MARY BRODERICK MD Apr 04, 2020 09:40
[2020-04-04 14:00] VITALS: BP 135/73
[2020-04-04] MEDS: EZETIMIBE 10 MG TAB (ZETIA) PO SCH (20:43)
[2020-04-04] MEDS: SIMVASTATIN 20 MG TAB PO SCH (20:43)
[2020-04-04] MEDS: SERTRALINE 100 MG TAB PO SCH (20:43)
[2020-04-04] MEDS: traMADol 50 MG TAB PO PRN ×2 (20:46→20:52)
[2020-04-04 22:00] VITALS: BP 147/74
[2020-04-05] MEDS: SUCRALFATE SUSP 1GM/10ML UD PO SCH ×3 (00:46→13:13)
[2020-04-05 06:00] VITALS: BP 124/60
[2020-04-05] MEDS: HumaLOG INSULIN (NovoLOG) PER UNIT SC SCH ×2 (07:30→13:14)
[2020-04-05] MEDS: NYSTATIN 100,000 UNITS/GM TOPICAL PWD 15 GM TOP SCH (08:08)
[2020-04-05] MEDS: CYANOCOBALAMIN 500 MCG TAB PO SCH (08:08)
[2020-04-05] MEDS: PANTOPRAZOLE 40MG TAB (PROTONIX) PO SCH (08:08)
[2020-04-05] MEDS: ONDANSETRON 4 MG TAB PO SCH ×2 (08:08→13:13)
[2020-04-05] MEDS: POTASSIUM CHLORIDE 10% LIQ 20 MEQ/15 ML UDC PO SCH (08:09)
[2020-04-05] MEDS ORDERED: TRAM50TA2 PO (08:23)
[2020-04-05] MEDS ORDERED: ONDA-83 PO (08:23)
[2020-04-05] MEDS ORDERED: POTA20EL PO (08:23)
[2020-04-05] MEDS ORDERED: PANT40TA3 PO (08:23)
[2020-04-05] MEDS ORDERED: SUCR1ORA PO (08:23)
[2020-04-05] MEDS ORDERED: NYST10006 TOP (08:23)
--- NOTE | 2020-04-05 17:13 | DS.PDOC ---
Discharge Summary General Date of Admission Mar 25, 2020 at 18:47 Date of Discharge 04/05/2020 Discharge Summary PROCEDURES PERFORMED DURING STAY: EGD with biopsies and balloon dilitation of esophagus ADMITTING DIAGNOSES: Esophageal stricture with persistent nausea, emesis and dysphagia DISCHARGE DIAGNOSES: Esophageal stricture with persistent nausea, emesis and dysphagia Benign esophageal stenosis s/p dilatation in 2018 Erythematous Duodenopathy Chronic abdominal pain COPD with chronic hypoxemic respiratory failure Moderate Pulmonary hypertension TARAS Mild Mitral regurgitation HTN H/o Bilateral nephrolithiasis with h/o ureteral stones and lithotripsy of left renal stone in 2016 Diastolic CHF DM2 OA Fibromyalgia HLD Chronic urinary incontinence GERD Hiatal hernia history of chronic back pain history of depression. Vit B12 def COMPLICATIONS/CHIEF COMPLAINT: Vomiting, Esophageal Strictures. HISTORY OF PRESENT ILLNESS: 74-year-old W patient with HTN, DM type II, COPD, pulmonary hypertension, mild mitral regurgitation, diastolic CHF, prior esophageal stricture [place] [address] Dennison, who presented with nausea, vomiting and dysphagia, after a recent EGD showed severe esophagitis ( suspect pill esophagitis on biopsy) with mid esophageal stricture with no evidence of a malignancy on biopsies and had been scheduled for outpatient EGD for esophageal dilation, but before she could have it, presented to [facility] for recurrent symptoms of nausea, vomiting and unable to tolerate solid foods by mouth and was sent to [facility] for GI evaluation. HOSPITAL COURSE: She was admitted to medicine and placed on BI PPI and made NPO for the EGD with biopsies and balloon dilitation of esophagus. Per GI she had antibiotics for 5 days and started on sucralfate suspension 1 gram PO QID for 6 weeks, with PRN antiemetics while her diet was slowly advanced until she tolerated a mechanical soft consistency diet. Her post procedure course was otherwise uncomplicated and she is to return to GI clinic and have a repeat upper endoscopy in 4 weeks to check healing and for retreatment and avoid NSAIDs. She did however become significantly deconditioned from her acute illness and worked with PT/OT until they recommended safe discharge to [facility]. DISCHARGE MEDICATIONS: Please see below. ALLERGIES: Please see below. PHYSICAL EXAMINATION ON DISCHARGE: VITAL SIGNS: Please see below. GENERAL: No acute distress, resting comfortably in chair EYES: PERRLA, EOMI HENT, MOUTH: Normocephalic, atraumatic, moist mucous membranes NECK: SUPPLE, no JVD, no adenopathy CV: Regular rhythm, holosystolic murmur heard throughout the precordium, loudest at RUSB. RESPIRATORY: Clear to auscultation bilaterally, has bibasilar crackles GI: obese abdomen, normoactive sounds, soft, nontender, nondistended, no rebound or guarding, no organomegaly EXT: No extremity edema, WWP SKIN: Intact, no rashes, no lesions, no erythema NEUROLOGIC: Cranial Nerves II-XII are intact, no focal deficits LABORATORY DATA: Please see below. IMAGING: None at [facility] PROGNOSIS: Good with strict GI follow up ACTIVITY: As tolerated DIET: Consistent carbohydrates DISCHARGE PLAN: STR DISPOSITION: STR with BID PPI and carafate for 6 weeks. DISCHARGE INSTRUCTIONS: 1. BID PPI and carafate for 6 weeks. Please call and schedule GI follow up within 3 weeks and anticipate repeat EGD in 4 weeks ITEMS TO FOLLOWUP ON ON OUTPATIENT: 1. Esophageal stricture DISCHARGE CONDITION: Stable TIME SPENT ON DISCHARGE: 44 minutes. Vital Signs/I&Os Vital Signs Date Time Temp Pulse Resp B/P (MAP) Pulse Ox O2 Delivery O2 Flow Rate FiO2 03/30/20 22:10 1.0 03/30/20 22:00 98.0 80 18 144/88 (106) 94 Room Air I&O- Last 24 Hours up to 6 AM 03/31/20 06:00 Intake Total 1270 ml Output Total 400 ml Balance 870 ml Laboratory Data Labs 24H Laboratory Tests 2 03/30/20 11:21: Bedside Glucose (Misc Panel) 174H 03/30/20 16:40: Bedside Glucose (Misc Panel) 86 03/30/20 19:52: Bedside Glucose (Misc Panel) 102 FSBS Laboratory Tests Test 03/30/20 11:21 03/30/20 16:40 03/30/20 19:52 Range/Units Bedside Glucose (Misc Panel) 174 86 102 83-110 MG/DL Discharge Medications Scheduled Aspirin (Aspir 81) 81 Mg Tablet.dr, 81 MG PO DAILY, (Reported) Cyanocobalamin (Vitamin B-12) (Vitamin B-12) 1,000 Mcg Tablet, 1,000 MCG PO DAILY, (Reported) Ezetimibe (Zetia) 10 Mg Tablet, 10 MG PO QHS, (Reported) Insulin Detemir (Levemir) 100 Unit/1 Ml Vial, 30 UNITS SC DAILY, (Reported) Insulin Human Lispro (Humalog) 100 Unit/1 Ml Vial, 1 DOSE SC AC, (Reported) PER SLIDING SCALE Losartan Potassium (Losartan Potassium) 50 Mg Tablet, 50 MG PO DAILY, (Reported) Metoprolol Succinate (Metoprolol Succinate) 50 Mg Tab.er.24h, 50 MG PO DAILY, ( Reported) Montelukast Sodium (Montelukast Sodium) 10 Mg Tablet, 10 MG PO DAILY, (Reported) Nystatin (Nystop) 60 Gm Powder, 1 DOSE TOP BID Ondansetron HCl (Ondansetron HCl) 4 Mg Tablet, 4 MG PO AC Pantoprazole Sodium (Pantoprazole Sodium) 40 Mg Tablet.dr, 40 MG PO DAILY Potassium Chloride (Potassium Chloride) 20 Meq/15 Ml Liquid, 30 MEQ PO DAILY Sertraline HCl (Sertraline HCl) 100 Mg Tablet, 100 MG PO QHS, (Reported) Simvastatin (Simvastatin) 20 Mg Tablet, 20 MG PO QHS, (Reported) Sucralfate (Sucralfate) 1 Gm/10 Ml Oral.susp, 1 GM PO Q6H Scheduled PRN Ipratropium [place] (Atrovent Hfa) 12.9 Gm Hfa.aer.ad, 2 PUFF INH QID PRN for SOB/WHEEZING, (Reported) Ipratropium/Albuterol Sulfate (Iprat-Albut 0.5-3(2.5) mg/3 ml) 3 Ml Ampul.neb, 1 VIAL INH QID PRN for SOB/WHEEZING, (Reported) Tramadol HCl (Tramadol HCl) 50 Mg Tablet, 50 MG PO Q6HP PRN for MODERATE PAIN (PS 5-7) Allergies Coded Allergies: ibuprofen (Verified Adverse Reaction, Unknown, ANGRY, 03/25/20) oxycodone (Verified Adverse Reaction, Unknown, ANGRY, 03/25/20) MARY BRODERICK MD Mar 31, 2020 06:57
--- NOTE | 2020-04-06 17:41 | REP ---
COOKIE SWALLOW The procedure was performed under the direct supervision of Dr. Mccauley. The procedure was performed with Chloe Kruger from speech pathology present. 5 ml aliquots of pudding, thin, soft, mixed fruit and crushed L consistency barium was administered. With thin and mixed fruit consistency barium there is laryngeal penetration. The detailed report of this examination will be provided by speech pathology. 1.1 minutes of fluoroscopy time was utilized for this procedure. Electronically Signed by COBY Laws 04/02/2020 03:03 P Electronically Signed by Andrzej Mccauley MD 04/06/2020 05:33 P
== END 2020-04-05 14:01 | DRG 392 ==
LOC: EDBD → M MSPAV 18:47 → M ICU 03-26 15:41 → M MSPAV 03-28 08:30 → UNDODISIN 03-31 15:21
PROVIDERS: ADMIT Internal Medicine Nephrology; ATTEND Internal Medicine
PROC: 0D728ZZ Dilation of Middle Esophagus, Via Natural or Artificial Opening Endoscopic (ICD-10-PCS; principal; 2020-03-26 10:00)
DX: K22.2 Esophageal obstruction (principal); I50.32 Chronic diastolic (congestive) heart failure; J96.11 Chronic respiratory failure with hypoxia; K20.0 Eosinophilic esophagitis; E11.649 Type 2 diabetes mellitus with hypoglycemia without coma; I11.0 Hypertensive heart disease with heart failure; J44.9 Chronic obstructive pulmonary disease, unspecified; G47.33 Obstructive sleep apnea (adult) (pediatric); I27.20 Pulmonary hypertension, unspecified; I34.0 Nonrheumatic mitral (valve) insufficiency; E53.8 Deficiency of other specified B group vitamins; K44.9 Diaphragmatic hernia without obstruction or gangrene; M19.90 Unspecified osteoarthritis, unspecified site; M79.7 Fibromyalgia; K21.9 Gastro-esophageal reflux disease without esophagitis; Z87.442 Personal history of urinary calculi; Z79.899 Other long term (current) drug therapy; Z79.82 Long term (current) use of aspirin; Z88.5 Allergy status to narcotic agent; Z88.6 Allergy status to analgesic agent; E87.6 Hypokalemia